=== PATIENT | female | born 1945 | race Hispanic/Latino ===

== ENCOUNTER 2018-02-17 12:17 | Inpatient (IN) | payer MEDICARE ==
[2018-02-17 13:33] LABS: BASO # 0.1 K/uL (0.0-0.2); BASO % 0.4 % (0.0-2.0); EOS # 0.2 K/uL (0.0-0.7); HEMOGLOBIN 15.4 g/dL (11.0-16.0); LYMPH % 4.6 % (20.0-40.0); MEAN CELL VOLUME 90.9 fL (81.0-99.0); MEAN CORPUSCULAR HEMOGLOBIN 32.3 pg (27.0-31.0); MEAN CORPUSCULAR HGB CONC 35.5 g/dL (33.0-37.0); MEAN PLATELET VOLUME 9.6 fL (7.2-11.7); MONO # 1.2 K/uL (0.0-0.8); MONO % 5.8 % (0.0-10.0); NEUT % 88.2 % (50.0-75.0); PLATELET COUNT 316 K/uL (130-400); RBC 4.76 Mil/uL (3.80-5.20); RED CELL DISTRIBUTION WIDTH 13.1 % (11.5-14.5); WHITE BLOOD COUNT 21.5 K/uL (4.8-10.8)
[2018-02-17 13:38] LABS: ALB/GLOB RATIO 0.9 (1.0-2.1); ALBUMIN 3.9 g/dL (3.5-5.0); CALCIUM 9.8 mg/dl (8.6-10.4)
[2018-02-17] MEDS ORDERED: Iohexol 240 (50 ml) PO STA (13:41)
--- NOTE | 2018-02-17 13:41 | C.PDOC ---
History Of Present Illness 72 y/o female presents to ED with complaints of intermittent sharp abdominal pain for 4 days associated with n/v/d. Patient states pain is worse on RUQ and reports fever that resolved. Patient was seen by PMD earlier today and advised to come to ED for further evaluation. Patient currently is tolerating fluids and denies recent travel, dysuria, back pain, chest pain, blood in stool or any other complaints at this time. Time Seen by Provider: 02/17/18 13:01 Chief Complaint (Nursing): Abdominal Pain History Per: Patient History/Exam Limitations: no limitations Onset/Duration Of Symptoms: Days Current Symptoms Are (Timing): Still Present Location Of Pain/Discomfort: RUQ Past Medical History Reviewed: Historical Data, Nursing Documentation, Vital Signs Vital Signs: Last Vital Signs Temp 99.2 F 02/17/18 16:27 Pulse 88 02/17/18 16:27 Resp 18 02/17/18 16:27 BP 142/87 02/17/18 16:27 Pulse Ox 96 02/17/18 17:37 - Medical History PMH: HTN Surgical History: No Surg Hx Family History: States: No Known Family Hx - Social History Hx Alcohol Use: Yes Hx Substance Use: No - Immunization History Hx Tetanus Toxoid Vaccination: Yes Hx Influenza Vaccination: Yes Hx Pneumococcal Vaccination: No Review Of Systems Constitutional: Negative for: Fever, Chills Cardiovascular: Negative for: Chest Pain Gastrointestinal: Positive for: Nausea, Vomiting, Abdominal Pain, Diarrhea. Negative for: Hematochezia Genitourinary: Negative for: Dysuria, Hematuria Skin: Negative for: Rash Physical Exam - Physical Exam Appears: Well, Non-toxic, No Acute Distress Skin: Warm, Dry, No Rash Head: Atraumatic, Normacephalic Eye(s): bilateral: Normal Inspection Oral Mucosa: Moist Neck: Normal ROM, Supple Cardiovascular: Rhythm Regular Respiratory: Normal Breath Sounds, No Rales, No Rhonchi, No Wheezing Gastrointestinal/Abdominal: Bowel Sounds, Soft, Tenderness (RUQ), No Guarding, No Rebound Back: No CVA Tenderness, No Paraspinal Tenderness Neurological/Psych: Oriented x3, Normal Speech, Normal Cognition ED Course And Treatment - Laboratory Results Result Diagrams: 02/17/18 13:22 02/17/18 13:22 ECG: Interpreted By Me, Viewed By Me ECG Rhythm: Sinus Rhythm Rate From EC (BPM) O2 Sat by Pulse Oximetry: 96 (RA) Pulse Ox Interpretation: Normal - CT Scan/US CT Abd/pelvis Other Rad Studies (CT/US): Read By Radiologist, Radiology Report Reviewed CT/US Interpretation: IMPRESSION: Findings consistent with acute appendicitis. Appendicolith noted. No evidence of periappendiceal abscess or free air. Additional minor findings as above. Medical Decision Making Medical Decision Making: Plan: CT abd/pelvis, Blood work, UA ordered. Iohexol and IV fluids administered Progress: Spoke to Dr. Tinajero agreed with Plan and wants consult Dr. Tse for surgery if positive results on CT scan [address]se[address] Dr Tinajero will consult for med clearance. pt declines any analgesics at this time Disposition Discussed With : Manish Tse Jr. Doctor Will See Patient In The: Hospital - Disposition Disposition: HOSPITALIZED Disposition Time: 17:36 Condition: GOOD Forms: [facility] (Cameroonian) - Clinical Impression Clinical Impression: Appendicitis, acute - PA / MENTAL HEALTH PROGRAM SPECIALIST / Resident Statement MD/DO has reviewed & agrees with the documentation as recorded. - Scribe Statement The provider has reviewed the documentation as recorded by the Scribe Jackeline Marcano All medical record entries made by the Shannan were at my direction and personally dictated by me. I have reviewed the chart and agree that the record accurately reflects my personal performance of the history, physical exam, medical decision making, and the department course for this patient. I have also personally directed, reviewed, and agree with the discharge instructions and disposition.
[2018-02-17] MEDS ORDERED: Iohexol 240 (50 ml) ONE (13:47)
[2018-02-17 14:26] LABS: BANDS 1 % (0-2); LYMPHOCYTE 3 % (20-40); MONOCYTE 6 % (0-10); NEUTROPHIL 90 % (50-75); PLATELET ESTIMATE NORMAL (NORMAL); TOTAL CELLS COUNTED 100
[2018-02-17 14:59] LABS: SQUAMOUS EPITHIAL 6 /hpf (0-5); URINE BACTERIA RARE (<OCC); URINE BILIRUBIN NEGATIVE (NEGATIVE); URINE BLOOD NEGATIVE (NEGATIVE); URINE CALCIUM OXALATE CRYSTALS OCC /hpf (<OCC); URINE CLARITY Hazy (Clear); URINE COLOR Amber (YELLOW); URINE GLUCOSE (UA) NORMAL (Normal); URINE LEUKOCYTE ESTERASE TRACE Leu/uL (Negative); URINE PROTEIN 2+ mg/dL (NEGATIVE)
[2018-02-17] MEDS ORDERED: Iodixanol 320 MG/ML 100 ML BOTTLE IV ONE (15:23)
[2018-02-17] MEDS ORDERED: Sodium Chloride 0.9% 1,000 ML ONE (15:23)
[2018-02-17] MEDS: Sodium Chloride 0.9% 1,000 ML IV SCH (15:25)
--- NOTE | 2018-02-17 16:32 | CT ---
PROCEDURE: CT Abdomen and Pelvis with contrast HISTORY: abd pain COMPARISON: None. TECHNIQUE: Contrast dose: 100 mL Visipaque 320 Radiation dose: Total exam DLP = 968.00 mGy-cm. This CT exam was performed using one or more of the following dose reduction techniques: Automated exposure control, adjustment of the mA and/or kV according to patient size, and/or use of iterative reconstruction technique. FINDINGS: LOWER THORAX: Minimal linear scar/ atelectasis in right lower lobe and in lingular segment left upper lobe. LIVER: Normal size, contour and attenuation. Two small nonspecific lesions. Low-attenuation 6 mm lesion in anterior right hepatic lobe, series 3, image 40. Nonspecific 8 mm low-attenuation lesion in the inferior posterior right hepatic lobe, series 3, image 51. No biliary dilatation. GALLBLADDER AND BILE DUCTS: Unremarkable. PANCREAS: Unremarkable. No gross lesion or ductal dilatation. SPLEEN: Unremarkable. ADRENALS: Unremarkable. No mass. KIDNEYS AND URETERS: Multiple small bilateral parapelvic renal cysts. Two tiny nonobstructing left renal calculi, 1 upper pole and 1 lower pole. No right renal calculus. No hydronephrosis. VASCULATURE: Unremarkable. No aortic aneurysm. BOWEL: Sigmoid diverticulosis. No evidence of diverticulitis. No bowel obstruction. APPENDIX: Findings consistent with acute appendicitis. An obstructing appendicolith is identified in the proximal aspect of the appendix. The appendix is distended up to a diameter of 16 mm. Periappendiceal inflammatory change is noted. There is no evidence of periappendiceal abscess. There is no evidence of free intraperitoneal air. Shotty periappendiceal lymph nodes are identified, likely reactive. PERITONEUM: Unremarkable. No free fluid. No free air. Small umbilical hernia containing only mesenteric fat. LYMPH NODES: No retroperitoneal or pelvic lymphadenopathy. BLADDER: Nondistended REPRODUCTIVE: Mildly hyperdense 4.1 cm rounded mass in the left side of the uterine body likely representing a leiomyoma. BONES: Extensive multilevel thoracolumbar degenerative disc disease. No evidence of fracture. Grade 1 anterolisthesis at L5-S1. OTHER FINDINGS: None. IMPRESSION: Findings consistent with acute appendicitis. Appendicolith noted. No evidence of periappendiceal abscess or free air. Additional minor findings as above.
[2018-02-17] MEDS ORDERED: Ciprofloxacin 400mg/200ml D5W 400 MG/200 ML BAG IVPB STA (16:33)
[2018-02-17] MEDS ORDERED: metroNIDAZOLE IV 500 mg/100 ml 500 MG/100 ML BAG IVPB STA (16:34)
[2018-02-17 17:52] LABS: INR 1.3; PROTHROMBIN TIME 14.3 SECONDS (9.7-12.2)
--- NOTE | 2018-02-17 17:56 | CP.PCM.HP ---
History of Present Illness - History of Present Illness History of Present Illness: Surgery H & P 72 F w PMH of HTN came with abd pain N/V/D that started on Saturday. Pain is located on mid abdomen and R side of the abdomen. Pt also report fevers. Took alleve to aliviate pain but didn't work. Pt reports taking Alleve daily for arthritis pain. She couldn't hold down any liquid or food. Denies recent travels or sick contact. Denies hematuria, hematemesis,hematochezia. WBC is 21, CT shows appendicitis PMH HTN, Arthritis PSH knee sx Meds Metoprolol SS non smoker, social drinker Present on Admission - Present on Admission Any Indicators Present on Admission: No Review of Systems - Review of Systems Review of Systems: See HPI Past Patient History - Past Social History Smoking Status: Never Smoked - CARDIAC Hx Hypertension: Yes - PSYCHIATRIC Hx Substance Use: No - SURGICAL HISTORY Hx Surgeries: Yes Other/Comment: knee, nose - ANESTHESIA Hx Anesthesia: Yes Hx Anesthesia Reactions: No Meds Allergies/Adverse Reactions: Allergies Allergy/AdvReac Type Severity Reaction Status Date / Time Sulfa (Sulfonamide Allergy Intermediate URTICARIA Verified 02/17/18 12:26 Antibiotics) cephalexin AdvReac Intermediate DIARRHEA Verified 02/17/18 12:26 Physical Exam - Constitutional Appears: No Acute Distress - Head Exam Head Exam: ATRAUMATIC, NORMAL INSPECTION, NORMOCEPHALIC - Eye Exam Eye Exam: EOMI, Normal appearance, PERRL Pupil Exam: NORMAL ACCOMODATION, PERRL - ENT Exam ENT Exam: Mucous Membranes Moist, Normal Exam - Neck Exam Neck exam: Positive for: Normal Inspection - Respiratory Exam Respiratory Exam: Clear to Auscultation Bilateral, NORMAL BREATHING PATTERN - Cardiovascular Exam Cardiovascular Exam: REGULAR RHYTHM - GI/Abdominal Exam GI & Abdominal Exam: Normal Bowel Sounds, Soft, Tenderness. absent: Distended, Firm, Guarding, Hernia Additional comments: R abd TTP - Extremities Exam Extremities exam: Positive for: normal inspection - Back Exam Back exam: NORMAL INSPECTION - Neurological Exam Neurological exam: Alert, CN II-XII Intact, Normal Gait, Oriented x3, Reflexes Normal - Psychiatric Exam Psychiatric exam: Normal Affect, Normal Mood - Skin Skin Exam: Dry, Intact, Normal Color, Warm Results - Vital Signs Recent Vital Signs: Last Vital Signs Temp 99.2 F 02/17/18 16:27 Pulse 88 02/17/18 16:27 Resp 18 02/17/18 16:27 BP 142/87 02/17/18 16:27 Pulse Ox 96 02/17/18 17:38 - Labs Result Diagrams: 02/17/18 13:22 02/17/18 13:22 Labs: Laboratory Results - last 24 hr 02/17/18 02/17/18 02/17/18 13:22 13:22 14:48 WBC 21.5 H RBC 4.76 Hgb 15.4 Hct 43.2 MCV 90.9 MCH 32.3 H MCHC 35.5 RDW 13.1 Plt Count 316 MPV 9.6 Neut % (Auto) 88.2 H Lymph % (Auto) 4.6 L [place] % (Auto) 5.8 Eos % (Auto) 1.0 Baso % (Auto) 0.4 Neut # (Auto) 19.0 H Lymph # (Auto) 1.0 [place] # (Auto) 1.2 H Eos # (Auto) 0.2 Baso # (Auto) 0.1 Neutrophils % (Manual) 90 H Band Neutrophils % 1 Lymphocytes % (Manual) 3 L Monocytes % (Manual) 6 Platelet Estimate Normal RBC Morphology Normal Sodium 140 Potassium 4.3 Chloride 97 L Carbon Dioxide 29 Anion Gap 18 BUN 20 H Creatinine 1.4 H Est GFR ( Amer) 45 Est GFR (Non-Af Amer) 37 Random Glucose 111 H Calcium 9.8 Total Bilirubin 1.9 H AST 38 H ALT 40 Alkaline Phosphatase 143 H Total Protein 8.2 Albumin 3.9 Globulin 4.3 H Albumin/Globulin Ratio 0.9 L Lipase 20 L Urine Color Samantha Urine Clarity Hazy Urine pH 5.0 Ur Specific [place] 1.027 Urine Protein 2+ H Urine Glucose (UA) Normal Urine Ketones 1+ H Urine Blood Negative Urine Nitrate Negative Urine Bilirubin Negative Urine Urobilinogen 2.0 H Ur Leukocyte Esterase Trace Urine WBC (Auto) 12 H Ur Squamous Epith Cells 6 H Calcium Oxalate Crystal Occ H Urine Bacteria Rare Hyaline Casts 6-10 H Assessment & Plan - Assessment and Plan (Free Text) Assessment: Acute appendicitis -OR tomorrow AM -ABX -IVF -NPO -Metoprolol -Pain /nausea control -DVT/GI ppx SABINE Han
[2018-02-17] MEDS: Piperacill/Tazo 3.375gm in Dex 3.375 GM/50 ML BAG IVPB SCH (21:15)
[2018-02-18] MEDS: Sodium Chloride 0.9% 1,000 ML IV SCH ×3 (01:12→21:46)
--- NOTE | 2018-02-18 01:45 | CP.PCM.CON ---
History of Present Illness - History of Present Illness History of Present Illness: Consultation Report for Medical Clearance for Appendectomy under General Anesthesia: cc: abdominal pain History of Present Illness: Pt awakened Saturday morning feeling sick, though with generalized abdominal pain with no other accompanying symptom. Pt did not feel bad enough that she couldn' t go to work, so she did. By lunchtime, her abdominal pain was such that she vomited. She also felt like she a lot of acccumulated gas all over inside her belly. By the afternoon she felt feverish, went home, and had not been able to eat anything since. Whenever she took Aleve for her presumed fever, she fell asleep and woke up drenched in sweat. Her symptoms persisted and possibly got even worse, with pain localizing at the RUQ of the abdomen. I advised her to go to the ER for immediate evaluation and prepare for possible surgery. > At the ER, pt was worked up and found to have an elevated WBC count as well as dehydrated. Pt's CT scan also showed not a cholecystitis as actually thought but a stone blocking the outflow of the appendix. Pt was subsequently admitted and currently being prepped for surgery. Review of Systems - Review of Systems Systems not reviewed;Unavailable: Acuity of Condition Review of Systems: acutely ill, + pain but tolerable - Constitutional Constitutional: Anorexia, Chills, Fever - EENT Eyes: absent: As Per HPI, Blind Spots, Blurred Vision, Change in Vision, Decreased Night Vision, Diplopia, Discharge, Dry Eye, Exophthalmos, Floaters, Irritation, Itchy Eyes, Loss of Peripheral Vision, Pain, Photophobia, Requires Corrective Lenses, Sees Flashes, Spots in Vision, Tunnel Vision, Other Visual Disturbances, Loss of Vision, Other - Breasts Breasts: absent: As Per HPI, Change in Shape, Mass, Pain, Nipple Discharge, Nipple Inversion, Skin Changes, Swelling, Other - Cardiovascular Cardiovascular: absent: As Per HPI, Acrocyanosis, Chest Pain, Chest Pain at Rest , Chest Pain with Activity, Claudication, Diaphoresis, Dyspnea, Dyspnea on Exertion, Edema, Irregular Heart Rhythm, Pain Radiating to Arm/Neck/Jaw, Leg Edema, Leg Ulcers, Lightheadedness, Orthopnea, Palpitations, Paroxysmal Nocturnal Dyspnea, Pedal Edema, Radiating Pain, Rapid Heart Rate, Slow Heart Rate, Syncope, Other - Respiratory Respiratory: absent: As Per HPI, Cough, Dyspnea, Hemoptysis, Dyspnea on Exertion , Wheezing, Snoring, Stridor, Pain on Inspiration, Chest Congestion, Excessive Mucous Production, Change in Mucous Color, Pain with Coughing, Other - Gastrointestinal Gastrointestinal: absent: As Per HPI, Abdominal Pain, Belching, Bloating, Change in Bowel Habits, Change in Stool Character, Coffee Ground Emesis, Constipation, Cramping, Diarrhea, Dyspepsia, Dysphagia, Early Satiety, Excessive Flatus, Fecal Incontinence, Heartburn, Hematemesis, Hematochezia, Loose Stools, Melena, Nausea, Odynophagia, Temesmus, Vomiting, Other - Genitourinary Genitourinary: absent: As Per HPI, Change in Urinary Stream, Difficulty Urinating, Dysuria, Flank Pain, Hematuria, Pyuria, Nocturia, Urinary Incontinence, Urinary Frequency, Urinary Hesitance, Urinary Urgency, Voiding Freq/Small Amts, Freq UTI, Hx Renal/Bladder Calculi, Hx /Renal Surgery, Bladder Distension, Other - Integumentary Integumentary: Skin Pain Additional comments: on dorsum of bilateral feet - Neurological Neurological: Abnormal Gait, Dizziness, Numbness - Psychiatric Psychiatric: absent: As Per HPI, Abnormal Sleep Pattern, Anhedonia, Anxiety, Auditory Hallucinations, Behavioral Changes, Change in Appetite, Change in Libido, Confusion, Depression, Difficulty Concentrating, Hallucinations, Homicidal Ideation, Hopelessness, Irritability, Memory Loss, Mood Swings, Panic Attacks, Paranoia, Suicidal Ideation, Visual Hallucinations, Tactile Hallucinations, Other - Endocrine Endocrine: absent: As Per HPI, Change in Body Appearance, Change in Libido, Cold Intolorance, Deepening of Voice, Excessive Sweating, Fatigue, Flushing, Heat Intolorance, Increase in Ring/Shoe/Hat Size, Palpitations, Polydipsia, Polyphagia, Polyuria, Other - Hematologic/Lymphatic Hematologic: absent: As Per HPI, Easy Bleeding, Easy Bruising, Lymphadenopathy, Other Past Patient History - Infectious Disease Hx of Infectious Diseases: None - Tetanus Immunizations Tetanus Immunization: Unknown - Past Medical History & Family History Past Medical History?: No Past Family History: Reviewed and not pertinent - Past Social History Smoking Status: Former Smoker Chewing Tobacco Use: No Cigar Use: No Occupation: [employer] - CARDIAC Hx Hypertension: Yes - PULMONARY Hx Respiratory Disorders: No - NEUROLOGICAL Hx Neurological Disorder: No - HEENT Hx Cataracts: Yes (right) - RENAL Hx Chronic Kidney Disease: No - ENDOCRINE/METABOLIC Hx Endocrine Disorders: No - HEMATOLOGICAL/ONCOLOGICAL Hx Blood Disorders: No - INTEGUMENTARY Hx Dermatological Problems: No - MUSCULOSKELETAL/RHEUMATOLOGICAL Hx Musculoskeletal Disorders: No Hx Falls: No - GASTROINTESTINAL Hx Gastrointestinal Disorders: No - GENITOURINARY/GYNECOLOGICAL Hx Genitourinary Disorders: No - PSYCHIATRIC Hx Psychophysiologic Disorder: No Hx Substance Use: No - SURGICAL HISTORY Hx Surgeries: Yes Other/Comment: knee, nose - ANESTHESIA Hx Anesthesia: Yes Hx Anesthesia Reactions: No Has any member of the family had a problem w/ anesthesia?: Yes Meds Allergies/Adverse Reactions: Allergies Allergy/AdvReac Type Severity Reaction Status Date / Time Sulfa (Sulfonamide Allergy Intermediate URTICARIA Verified 02/17/18 12:26 Antibiotics) cephalexin AdvReac Intermediate DIARRHEA Verified 02/17/18 12:26 - Medications Medications: Current Medications Acetaminophen (Tylenol 325mg Tab) 975 mg PO Q6 PRN PRN Reason: Fever >100.4 F Hydromorphone HCl (Dilaudid) 1 mg IVP Q4H PRN PRN Reason: Pain, severe (8-10) Sodium Chloride (Sodium Chloride 0.9%) 1,000 mls @ 100 mls/hr IV .Q10H [facility] Last Admin: 02/17/18 15:25 Dose: 100 mls/hr Piperacillin Sod/Tazobactam Sod (Zosyn 3.375 Gm Iv Premix) 3.375 gm in 50 mls @ 100 mls/hr IVPB Q6H VIET PRN Reason: Protocol Last Admin: 02/17/18 21:15 Dose: 100 mls/hr Metoprolol Tartrate (Lopressor) 25 mg PO BID [facility] Last Admin: 02/17/18 18:48 Dose: 25 mg Ondansetron HCl (Zofran Inj) 4 mg IVP Q4 PRN PRN Reason: Nausea/Vomiting Pantoprazole Sodium (Protonix Inj) 40 mg IVP DAILY [facility] Last Admin: 02/17/18 18:49 Dose: 40 mg Physical Exam - Constitutional Appears: No Acute Distress - Head Exam Head Exam: NORMAL INSPECTION Additional comments: sweaty - Eye Exam Eye Exam: Normal appearance Pupil Exam: NORMAL ACCOMODATION - ENT Exam ENT Exam: Normal Exam - Neck Exam Neck exam: Positive for: Normal Inspection - Respiratory Exam Respiratory Exam: NORMAL BREATHING PATTERN - Cardiovascular Exam Cardiovascular Exam: REGULAR RHYTHM - Rectal Exam Rectal Exam: NORMAL INSPECTION - Extremities Exam Extremities exam: Positive for: normal inspection - Back Exam Back exam: NORMAL INSPECTION - Neurological Exam Neurological exam: Oriented x3, Reflexes Normal - Psychiatric Exam Psychiatric exam: Normal Affect, Normal Mood Results - Vital Signs Recent Vital Signs: Last Vital Signs Temp 98.1 F 02/17/18 23:40 Pulse 70 02/17/18 23:40 Resp 20 02/17/18 23:40 BP 122/77 02/17/18 23:40 Pulse Ox 95 02/17/18 23:40 - Labs Result Diagrams: 02/17/18 13:22 02/17/18 13:22 Labs: Laboratory Results - last 24 hr 02/17/18 02/17/18 02/17/18 13:22 13:22 14:48 WBC 21.5 H RBC 4.76 Hgb 15.4 Hct 43.2 MCV 90.9 MCH 32.3 H MCHC 35.5 RDW 13.1 Plt Count 316 MPV 9.6 Neut % (Auto) 88.2 H Lymph % (Auto) 4.6 L [place] % (Auto) 5.8 Eos % (Auto) 1.0 Baso % (Auto) 0.4 Neut # (Auto) 19.0 H Lymph # (Auto) 1.0 [place] # (Auto) 1.2 H Eos # (Auto) 0.2 Baso # (Auto) 0.1 Neutrophils % (Manual) 90 H Band Neutrophils % 1 Lymphocytes % (Manual) 3 L Monocytes % (Manual) 6 Platelet Estimate Normal RBC Morphology Normal PT INR APTT Sodium 140 Potassium 4.3 Chloride 97 L Carbon Dioxide 29 Anion Gap 18 BUN 20 H Creatinine 1.4 H Est GFR ( Amer) 45 Est GFR (Non-Af Amer) 37 Random Glucose 111 H Calcium 9.8 Total Bilirubin 1.9 H AST 38 H ALT 40 Alkaline Phosphatase 143 H Total Protein 8.2 Albumin 3.9 Globulin 4.3 H Albumin/Globulin Ratio 0.9 L Lipase 20 L Urine Color Samantha Urine Clarity Hazy Urine pH 5.0 Ur Specific [place] 1.027 Urine Protein 2+ H Urine Glucose (UA) Normal Urine Ketones 1+ H Urine Blood Negative Urine Nitrate Negative Urine Bilirubin Negative Urine Urobilinogen 2.0 H Ur Leukocyte Esterase Trace Urine WBC (Auto) 12 H Ur Squamous Epith Cells 6 H Calcium Oxalate Crystal Occ H Urine Bacteria Rare Hyaline Casts 6-10 H Blood Type Antibody Screen 02/17/18 02/17/18 17:31 17:31 WBC RBC Hgb Hct MCV MCH MCHC RDW Plt Count MPV Neut % (Auto) Lymph % (Auto) [place] % (Auto) Eos % (Auto) Baso % (Auto) Neut # (Auto) Lymph # (Auto) [place] # (Auto) Eos # (Auto) Baso # (Auto) Neutrophils % (Manual) Band Neutrophils % Lymphocytes % (Manual) Monocytes % (Manual) Platelet Estimate RBC Morphology PT 14.3 H INR 1.3 APTT 31 Sodium Potassium Chloride Carbon Dioxide Anion Gap BUN Creatinine Est GFR ( Amer) Est GFR (Non-Af Amer) Random Glucose Calcium Total Bilirubin AST ALT Alkaline Phosphatase Total Protein Albumin Globulin Albumin/Globulin Ratio Lipase Urine Color Urine Clarity Urine pH Ur Specific [place] Urine Protein Urine Glucose (UA) Urine Ketones Urine Blood Urine Nitrate Urine Bilirubin Urine Urobilinogen Ur Leukocyte Esterase Urine WBC (Auto) Ur Squamous Epith Cells Calcium Oxalate Crystal Urine Bacteria Hyaline Casts Blood Type O POSITIVE Antibody Screen Negative - EKG Data EKG Interpreted by: Myself EKG shows normal: Sinus rhythm Rate: Normal, Tachycardia - EKG Data When Compared to Previous EKG: No Significant Change Assessment & Plan (1) Appendicitis Assessment and Plan: prep for OR in AM, NPO post midnight Status: Acute (2) Headache Assessment and Plan: prob 2ndry to not enough food; pt aware needs to have empty stomach; pt motivated to fast Status: Acute (3) Dehydration fever Assessment and Plan: acetaminophen 500 mg q 6 hrs prn fever ( T> 99.5) deg F Status: Acute (4) Preoperative clearance Assessment and Plan: Pt may get called in AM for surgery. PATIENT IS MEDICALLY OPTIMIZED FOR LAPAROSCOPIC APPENDECTOMY UNDER GENERAL ANESTHESIA AND SHOULD BE LOW RISK FOR COMPLICATOINS. > Advised pt of normal recovery times in my experience. Status: Acute
[2018-02-18] MEDS: Piperacill/Tazo 3.375gm in Dex 3.375 GM/50 ML BAG IVPB SCH ×5 (02:46→20:35)
[2018-02-18 06:59] LABS: BASO # 0.1 K/uL (0.0-0.2); BASO % 0.4 % (0.0-2.0); EOS # 0.4 K/uL (0.0-0.7); EOS % 2.3 % (0.0-4.0); HEMOGLOBIN 13.9 g/dL (11.0-16.0); LYMPH # 0.9 K/uL (1.0-4.3); LYMPH % 5.6 % (20.0-40.0); MEAN CELL VOLUME 90.8 fL (81.0-99.0); MEAN CORPUSCULAR HEMOGLOBIN 32.3 pg (27.0-31.0); MEAN CORPUSCULAR HGB CONC 35.6 g/dL (33.0-37.0); MEAN PLATELET VOLUME 9.6 fL (7.2-11.7); MONO % 6.1 % (0.0-10.0); NEUT # 13.8 K/uL (1.8-7.0); NEUT % 85.6 % (50.0-75.0); PLATELET COUNT 309 K/uL (130-400); RBC 4.32 Mil/uL (3.80-5.20); RED CELL DISTRIBUTION WIDTH 13.3 % (11.5-14.5); WHITE BLOOD COUNT 16.2 K/uL (4.8-10.8)
[2018-02-18 07:07] LABS: INR 1.3; PROTHROMBIN TIME 14.2 SECONDS (9.7-12.2)
[2018-02-18 07:38] LABS: ALB/GLOB RATIO 0.9 (1.0-2.1); ALBUMIN 3.2 g/dL (3.5-5.0); CALCIUM 8.7 mg/dl (8.6-10.4)
[2018-02-18 08:55] LABS: LYMPHOCYTE 5 % (20-40); MONOCYTE 6 % (0-10); NEUTROPHIL 89 % (50-75); PLATELET ESTIMATE NORMAL (NORMAL); TOTAL CELLS COUNTED 100
--- NOTE | 2018-02-18 10:39 | RAD ---
HISTORY: med clearance COMPARISON: No prior. TECHNIQUE: Chest PA and lateral FINDINGS: LUNGS: Curvilinear atelectasis and/or scarring seen in the mid lung field. Slight elevation right hemidiaphragm. Questionable minor pleural thickening left CP angle PLEURA: No significant pleural effusion identified. No pneumothorax apparent. CARDIOVASCULAR: Heart size within range of normal. OSSEOUS STRUCTURES: Chronic anterior wedge deformities of several mid thoracic segments. VISUALIZED UPPER ABDOMEN: Normal. OTHER FINDINGS: None. IMPRESSION: Curvilinear atelectasis and/or scarring seen in the mid lung field. Slight elevation right hemidiaphragm. Questionable minor pleural thickening left CP angle
[2018-02-18] MEDS ORDERED: Lactated Ringer's 1,000 ML IV ONE ×2 (11:55→14:26)
[2018-02-18] MEDS ORDERED: Midazolam 2 MG/2 ML VIAL ONE (12:04)
[2018-02-18] MEDS ORDERED: Propofol 10 mg/ml Inj (20 ML) ONE (12:04)
[2018-02-18] MEDS ORDERED: Lactated Ringer's 500 ML IV ONE (13:30)
[2018-02-18] MEDS ORDERED: Neostigmine Methylsulfate 3mg/3ml Syringe IV ONE (13:55)
--- NOTE | 2018-02-18 14:25 | PCM.SURG1 ---
Surgeon's Initial Post Op Note - Surgeon's Notes Surgeon: Dr. Han Fuel Manager: Dr. Mejia PGY2 Type of Anesthesia: General Endo Pre-Operative Diagnosis: Acute appendicitis Operative Findings: See operative dictation Post-Operative Diagnosis: Acute Appendicitis with pariappendiceal abscess Operation Performed: Laparoscopic converted to open appendectomy Specimen/Specimens Removed: Appendix Estimated Blood Loss: EBL {In ML}: 20 Blood Products Given: N/A Drains Used: No Drains Post-Op Condition: Good Date of Surgery/Procedure: 02/18/18 Time of Surgery/Procedure: 14:25
[2018-02-18] MEDS ORDERED: Lactated Ringer's 1,000 ML IV SCH (14:45)
[2018-02-18] MEDS: HYDROmorphone 0.5 mg/0.5 ml ISec IVP PRN ×3 (14:52→15:39)
[2018-02-18 16:30] VITALS: RESP 20
[2018-02-18] MEDS: HYDROmorphone 1 mg/ml ISec IVP PRN ×2 (19:43→23:55)
--- NOTE | 2018-02-19 01:28 | OP ---
PROCEDURE DATE: 02/18/2018 PREOPERATIVE DIAGNOSIS: Appendicitis. POSTOPERATIVE DIAGNOSIS: Appendicitis with periappendiceal abscess. OPERATION CARRIED OUT: Attempted laparoscopic and then open appendectomy for appendicitis with a periappendiceal abscess. SURGEON: Manish Han Jr., MD PHOTOTYPESETTING EQUIPMENT MONITOR: ____ ANESTHESIOLOGIST: Mr. Michelle. INDICATIONS: The patient is a 72-year-old woman with abdominal pain. Elevated white count, found to have abnormal appendix on CAT scanning. OPERATIVE FINDINGS: General abdominal exploration laparoscopically was unremarkable. We were able to identify the cecum, but we were unable to mobilize the appendix in the field as it was chronically inflamed and there was a periappendiceal abscess. The resting intraoperative findings were unremarkable. DESCRIPTION OF PROCEDURE: The patient was given general anesthesia, intravenous antibiotics have previously been administered. A Méndez catheter was inserted. We inserted 3 trocars into the abdomen. We were able to identify the cecum, etc. However, after detailed manipulations, we were unable to mobilize the appendix. Because of this, we did not open the appendix. We then opened the abdomen with a right lower quadrant muscle-splitting incision. After this had been done, we identified the appendix. The initial tip of it came out on digital exploration. We then dissected out the base, which was normal, applied the stapler across the base of it and removed the appendix. Blood loss for the procedure was less than 25 mL. The culture was taken of some purulent material. The rest of the intraoperative findings were unremarkable. The entire abdomen and the right lower quadrant were irrigated as well. Evidence of pus, etc., was all removed. Manish Han Jr., MD cc: Michi Tinajero MD
[2018-02-19] MEDS: Piperacill/Tazo 3.375gm in Dex 3.375 GM/50 ML BAG IVPB SCH ×4 (01:49→19:15)
--- NOTE | 2018-02-19 03:52 | CP.PCM.PN ---
Subjective - Date & Time of Evaluation Date of Evaluation: 02/18/18 Time of Evaluation: 16:00 - Subjective Subjective: zx Pt seen and examined at bedside. Had just had some bloody drainage from her incidision site after she walked to the toilet. Resident appears in good spirits though and has pillow covering her abdomen. Explained to pt as well that pain meds will be given as well if she requests for it. Pt is aware that her surgery was converted to an open procedure from a laparoscopic procedure. Pt had been able to eat some jello whle discussing her discharge plans. Objective - Vital Signs/Intake and Output Vital Signs (last 24 hours): Temp Pulse Resp BP Pulse Ox 98.1 F 80 20 122/78 95 02/19/18 00:00 02/19/18 00:00 02/19/18 00:00 02/19/18 00:00 02/19/18 00:00 Intake and Output: 02/18/18 02/19/18 18:59 06:59 Intake Total 500 Output Total 100 Balance 400 - Medications Medications: Current Medications Acetaminophen (Tylenol 325mg Tab) 975 mg PO Q6 PRN PRN Reason: Fever >100.4 F Heparin Sodium (Porcine) (Heparin) 5,000 units SC Q8 [facility] Hydromorphone HCl (Dilaudid) 1 mg IVP Q4H PRN PRN Reason: Pain, severe (8-10) Last Admin: 02/18/18 23:55 Dose: 1 mg Sodium Chloride (Sodium Chloride 0.9%) 1,000 mls @ 100 mls/hr IV .Q10H [facility] Last Admin: 02/18/18 21:46 Dose: 100 mls/hr Piperacillin Sod/Tazobactam Sod (Zosyn 3.375 Gm Iv Premix) 3.375 gm in 50 mls @ 100 mls/hr IVPB Q6H [facility] PRN Reason: Protocol Last Admin: 02/19/18 01:49 Dose: 100 mls/hr Metoprolol Tartrate (Lopressor) 25 mg PO BID [facility] Last Admin: 02/18/18 19:47 Dose: 25 mg Ondansetron HCl (Zofran Inj) 4 mg IVP Q4 PRN PRN Reason: Nausea/Vomiting Oxycodone/Acetaminophen (Percocet 5/325 Mg Tab) 1 tab PO Q4H PRN PRN Reason: Pain, moderate (4-7) Stop: 02/21/18 14:27 Pantoprazole Sodium (Protonix Inj) 40 mg IVP DAILY [facility] Last Admin: 02/18/18 09:20 Dose: 40 mg Pneumococcal Polyvalent Vaccine (Pneumovax 23 Vaccine) 0.5 ml IM .ONCE ONE Stop: 02/20/18 10:01 - Labs Labs: 02/18/18 06:53 02/18/18 06:53 PT 14.2 SECONDS (9.7-12.2) H 02/18/18 06:53 INR 1.3 02/18/18 06:53 APTT 32 SECONDS (21-34) 02/18/18 06:53 - Constitutional Appears: No Acute Distress - Eye Exam Eye Exam: Normal appearance, Scleral icterus - ENT Exam ENT Exam: Mucous Membranes Moist - Neck Exam Neck Exam: Lymphadenopathy - Respiratory Exam Respiratory Exam: NORMAL BREATHING PATTERN Additional comments: extubated, breathing spontaenously - Cardiovascular Exam Cardiovascular Exam: REGULAR RHYTHM - GI/Abdominal Exam GI & Abdominal Exam: Normal Bowel Sounds - Rectal Exam Rectal Exam: Deferred - Extremities Exam Extremities Exam: Normal Inspection - Back Exam Back Exam: NORMAL INSPECTION - Neurological Exam Neurological Exam: Alert, Awake, CN II-XII Intact Neuro motor strength exam: Left Upper Extremity: 5, Right Upper Extremity: 5 - Psychiatric Exam Psychiatric exam: Normal Mood, Suicidal Ideation - Skin Skin Exam: Normal Color Assessment and Plan (1) Appendicitis Assessment & Plan: s/p surgery. appears tolerated procedure well, monitor for signs of infectiosi including fever, hypotension Status: Acute (2) Headache Status: Resolved (3) Dehydration fever Status: Resolved (4) Preoperative clearance Status: Resolved (5) Leukocytosis Assessment & Plan: could be reactive and alexx 2ndry to stress of surgery. Continue IV abx Status: Acute
[2018-02-19] MEDS: HYDROmorphone 1 mg/ml ISec IVP PRN ×2 (04:11→10:35)
[2018-02-19 07:11] LABS: BASO # 0.1 K/uL (0.0-0.2); BASO % 0.5 % (0.0-2.0); EOS # 0.1 K/uL (0.0-0.7); EOS % 0.3 % (0.0-4.0); HEMOGLOBIN 13.3 g/dL (11.0-16.0); LYMPH % 4.7 % (20.0-40.0); MEAN CELL VOLUME 92.2 fL (81.0-99.0); MEAN CORPUSCULAR HEMOGLOBIN 31.6 pg (27.0-31.0); MEAN CORPUSCULAR HGB CONC 34.2 g/dL (33.0-37.0); MEAN PLATELET VOLUME 9.6 fL (7.2-11.7); MONO # 1.9 K/uL (0.0-0.8); NEUT # 18.4 K/uL (1.8-7.0); NEUT % 85.5 % (50.0-75.0); PLATELET COUNT 319 K/uL (130-400); RBC 4.22 Mil/uL (3.80-5.20); RED CELL DISTRIBUTION WIDTH 13.5 % (11.5-14.5); WHITE BLOOD COUNT 21.5 K/uL (4.8-10.8)
[2018-02-19] MEDS: Sodium Chloride 0.9% 1,000 ML IV SCH ×2 (07:33→21:23)
[2018-02-19 09:27] LABS: BANDS 4 % (0-2); LYMPHOCYTE 4 % (20-40); TOTAL CELLS COUNTED 100
[2018-02-19 09:28] LABS: MONOCYTE 8 % (0-10); NEUTROPHIL 84 % (50-75); PLATELET ESTIMATE NORMAL (NORMAL)
--- NOTE | 2018-02-19 12:06 | CP.PCM.PN ---
Subjective - Date & Time of Evaluation Date of Evaluation: 02/19/18 Time of Evaluation: 12:05 - Subjective Subjective: clinically stable wbc remains elevated will advance diet and increase diet and activiyt Objective - Vital Signs/Intake and Output Vital Signs (last 24 hours): Temp Pulse Resp BP Pulse Ox 98.2 F 85 20 134/74 96 02/19/18 08:08 02/19/18 08:08 02/19/18 08:08 02/19/18 11:00 02/19/18 08:08 Intake and Output: 02/19/18 02/19/18 06:59 18:59 Intake Total 920 Balance 920 - Medications Medications: Current Medications Acetaminophen (Tylenol 325mg Tab) 975 mg PO Q6 PRN PRN Reason: Fever >100.4 F Heparin Sodium (Porcine) (Heparin) 5,000 units SC Q8 [facility] Last Admin: 02/19/18 05:54 Dose: 5,000 units Hydromorphone HCl (Dilaudid) 1 mg IVP Q4H PRN PRN Reason: Pain, severe (8-10) Last Admin: 02/19/18 10:35 Dose: 1 mg Sodium Chloride (Sodium Chloride 0.9%) 1,000 mls @ 100 mls/hr IV .Q10H [facility] Last Admin: 02/19/18 07:33 Dose: 100 mls/hr Piperacillin Sod/Tazobactam Sod (Zosyn 3.375 Gm Iv Premix) 3.375 gm in 50 mls @ 100 mls/hr IVPB Q6H [facility] PRN Reason: Protocol Last Admin: 02/19/18 08:48 Dose: 100 mls/hr Metoprolol Tartrate (Lopressor) 25 mg PO BID [facility] Last Admin: 02/19/18 11:00 Dose: 25 mg Ondansetron HCl (Zofran Inj) 4 mg IVP Q4 PRN PRN Reason: Nausea/Vomiting Oxycodone/Acetaminophen (Percocet 5/325 Mg Tab) 1 tab PO Q4H PRN PRN Reason: Pain, moderate (4-7) Stop: 02/21/18 14:27 Pantoprazole Sodium (Protonix Inj) 40 mg IVP DAILY [facility] Last Admin: 02/19/18 11:00 Dose: 40 mg Pneumococcal Polyvalent Vaccine (Pneumovax 23 Vaccine) 0.5 ml IM .ONCE ONE Stop: 02/20/18 10:01 - Labs Labs: 02/19/18 07:00 02/18/18 06:53 PT 14.2 SECONDS (9.7-12.2) H 02/18/18 06:53 INR 1.3 02/18/18 06:53 APTT 32 SECONDS (21-34) 02/18/18 06:53
[2018-02-19] MEDS: Oxycodone/Acetaminophen 5/325 mg Tab PO PRN ×2 (16:01→21:30)
[2018-02-19] MEDS: guaiFENesin 100 mg/5 ml Syrup UD PO PRN ×2 (16:08→21:23)
--- NOTE | 2018-02-19 20:10 | CP.PCM.PN ---
Subjective - Date & Time of Evaluation Date of Evaluation: 02/19/18 Time of Evaluation: 20:08 - Subjective Subjective: Pt seen and examined at bedside. Pt feeling ok, no complaints. Abdom pain less. No s/s/x of sepsis. > Called by nurse earlier re: BP meds for HTN. Awaiting pt's BP to get better before restarting her home meds. BP far from being alarming and in fact, had been running on the borderline hypotensive side. Objective - Vital Signs/Intake and Output Vital Signs (last 24 hours): Temp Pulse Resp BP Pulse Ox 98.4 F 86 20 142/80 99 02/19/18 16:00 02/19/18 16:00 02/19/18 16:00 02/19/18 17:17 02/19/18 16:00 Intake and Output: 02/19/18 02/20/18 18:59 06:59 Intake Total 1000 Balance 1000 - Medications Medications: Current Medications Acetaminophen (Tylenol 325mg Tab) 975 mg PO Q6 PRN PRN Reason: Fever >100.4 F Guaifenesin (Robitussin) 100 mg PO Q4H PRN PRN Reason: Cough Last Admin: 02/19/18 16:08 Dose: 100 mg Heparin Sodium (Porcine) (Heparin) 5,000 units SC Q8 [facility] Last Admin: 02/19/18 14:32 Dose: 5,000 units Hydromorphone HCl (Dilaudid) 1 mg IVP Q4H PRN PRN Reason: Pain, severe (8-10) Last Admin: 02/19/18 10:35 Dose: 1 mg Sodium Chloride (Sodium Chloride 0.9%) 1,000 mls @ 100 mls/hr IV .Q10H [facility] Last Admin: 02/19/18 07:33 Dose: 100 mls/hr Piperacillin Sod/Tazobactam Sod (Zosyn 3.375 Gm Iv Premix) 3.375 gm in 50 mls @ 100 mls/hr IVPB Q6H [facility] PRN Reason: Protocol Last Admin: 02/19/18 19:15 Dose: 100 mls/hr Metoprolol Tartrate (Lopressor) 25 mg PO BID [facility] Last Admin: 02/19/18 17:17 Dose: 25 mg Ondansetron HCl (Zofran Inj) 4 mg IVP Q4 PRN PRN Reason: Nausea/Vomiting Oxycodone/Acetaminophen (Percocet 5/325 Mg Tab) 1 tab PO Q4H PRN PRN Reason: Pain, moderate (4-7) Stop: 02/21/18 14:27 Last Admin: 02/19/18 16:01 Dose: 1 tab Pantoprazole Sodium (Protonix Inj) 40 mg IVP DAILY [facility] Last Admin: 02/19/18 11:00 Dose: 40 mg Pneumococcal Polyvalent Vaccine (Pneumovax 23 Vaccine) 0.5 ml IM .ONCE ONE Stop: 02/20/18 10:01 - Labs Labs: 02/19/18 07:00 02/18/18 06:53 PT 14.2 SECONDS (9.7-12.2) H 02/18/18 06:53 INR 1.3 02/18/18 06:53 APTT 32 SECONDS (21-34) 02/18/18 06:53 - Constitutional Appears: No Acute Distress (NAD other than pain from operative site irmproved with abdom binder) - Head Exam Head Exam: NORMAL INSPECTION - Eye Exam Eye Exam: Normal appearance Pupil Exam: NORMAL ACCOMODATION - ENT Exam ENT Exam: Normal Exam - Neck Exam Neck Exam: Normal Inspection - Respiratory Exam Respiratory Exam: Clear to Ausculation Bilateral - Cardiovascular Exam Cardiovascular Exam: RRR - GI/Abdominal Exam GI & Abdominal Exam: Soft, Hyperactive Bowel Sounds - Rectal Exam Rectal Exam: Fecal Impaction, NORMAL INSPECTION - Back Exam Back Exam: NORMAL INSPECTION - Neurological Exam Neurological Exam: Abnormal Gait, Oriented x3 Neuro motor strength exam: Left Upper Extremity: 4, Right Upper Extremity: 4, Left Lower Extremity: 4, Right Lower Extremity: 4 - Psychiatric Exam Psychiatric exam: Normal Affect, Normal Mood - Skin Skin Exam: Diaphoretic, Dry, Intact, Normal Color Assessment and Plan (1) Leukocytosis Assessment & Plan: The continuing increase in WBC count prmpted me to call Pharmacy to determine relationships between cephalosporin allergy and increases in WBC count when pts are given Zosyn. There is a small subset of pts in which the WBC did rise, and discontinuation led to normalizaton of results. Will consult ID and start meropenem. Status: Acute (2) Appendicitis Assessment & Plan: did not rupture but perimeter had starting periappendiceal abscess. Pt on Zosyn day 3. Status: Resolved - Assessment and Plan (Free Text) Assessment: dISPO: Will require an add'l day of hospitalization to allow for observation if white counts will change in am
[2018-02-19 22:30] LABS: SQUAMOUS EPITHIAL 1 /hpf (0-5); URINE AMORPHOUS SEDIMENT MANY /ul (<OCC); URINE BACTERIA RARE (<OCC); URINE BILIRUBIN NEGATIVE (NEGATIVE); URINE BLOOD NEGATIVE (NEGATIVE); URINE CLARITY Hazy (Clear); URINE GLUCOSE (UA) NORMAL (Normal); URINE LEUKOCYTE ESTERASE NEG Leu/uL (Negative); URINE PROTEIN 1+ mg/dL (NEGATIVE); URINE UROBILINOGEN NORMAL mg/dL (0.2-1.0)
[2018-02-19 22:32] LABS: URINE COLOR YELLOW (YELLOW)
[2018-02-20] MEDS: Albuterol 0.083% Inhal Sol (2.5 mg/3 mL) UD INH SCH ×4 (01:13→19:46)
[2018-02-20] MEDS: Piperacill/Tazo 3.375gm in Dex 3.375 GM/50 ML BAG IVPB SCH ×2 (01:58→07:32)
--- NOTE | 2018-02-20 07:58 | CP.PCM.PN ---
Subjective - Date & Time of Evaluation Date of Evaluation: 02/20/18 Time of Evaluation: 07:50 - Subjective Subjective: General Surgery Progress Note for Dr. Han This 72F was seen and examined this AM at bedside no acute events overnight. The patient complains of generalized sorness in the abdomen however she reports that the percocet is working. She denies fevers however she reports cold sweats. She is passing gas no BM. She is tolerating diet. She is ambulating, she denies chest pain or SOB. Objective - Vital Signs/Intake and Output Vital Signs (last 24 hours): Temp Pulse Resp BP Pulse Ox 98.3 F 86 20 124/82 96 02/20/18 04:00 02/20/18 04:00 02/20/18 04:00 02/20/18 04:00 02/19/18 23:57 - Medications Medications: Current Medications Acetaminophen (Tylenol 325mg Tab) 975 mg PO Q6 PRN PRN Reason: Fever >100.4 F Albuterol Sulfate (Albuterol 0.083% Inhal Beatriz (2.5 Mg/3 Ml) Ud) 2.5 mg INH RQ6 [facility] Last Admin: 02/20/18 01:13 Dose: Not Given Amlodipine Besylate (Norvasc) 5 mg PO DAILY [facility] Guaifenesin (Robitussin) 100 mg PO Q4H PRN PRN Reason: Cough Last Admin: 02/19/18 21:23 Dose: 100 mg Heparin Sodium (Porcine) (Heparin) 5,000 units SC Q8 [facility] Last Admin: 02/20/18 05:21 Dose: 5,000 units Piperacillin Sod/Tazobactam Sod (Zosyn 3.375 Gm Iv Premix) 3.375 gm in 50 mls @ 100 mls/hr IVPB Q6H [facility] PRN Reason: Protocol Last Admin: 02/20/18 07:32 Dose: 100 mls/hr Metoprolol Succinate (Toprol Xl) 25 mg PO DAILY [facility] Ondansetron HCl (Zofran Inj) 4 mg IVP Q4 PRN PRN Reason: Nausea/Vomiting Oxycodone/Acetaminophen (Percocet 5/325 Mg Tab) 1 tab PO Q4H PRN PRN Reason: Pain, moderate (4-7) Stop: 02/21/18 14:27 Last Admin: 02/19/18 21:30 Dose: 1 tab Pantoprazole Sodium (Protonix Inj) 40 mg IVP DAILY [facility] Last Admin: 02/19/18 11:00 Dose: 40 mg Pneumococcal Polyvalent Vaccine (Pneumovax 23 Vaccine) 0.5 ml IM .ONCE ONE Stop: 02/20/18 10:01 Zolpidem Tartrate (Ambien) 5 mg PO HS [facility] Last Admin: 02/19/18 22:19 Dose: 5 mg - Labs Labs: 02/19/18 07:00 02/18/18 06:53 PT 14.2 SECONDS (9.7-12.2) H 02/18/18 06:53 INR 1.3 02/18/18 06:53 APTT 32 SECONDS (21-34) 02/18/18 06:53 - Constitutional Appears: Non-toxic, No Acute Distress - Head Exam Head Exam: ATRAUMATIC, NORMOCEPHALIC - Eye Exam Eye Exam: EOMI, Normal appearance - ENT Exam ENT Exam: Mucous Membranes Moist - Respiratory Exam Respiratory Exam: NORMAL BREATHING PATTERN - Cardiovascular Exam Cardiovascular Exam: +S1, +S2 - GI/Abdominal Exam GI & Abdominal Exam: Soft. absent: Distended, Firm, Guarding, Rigid, Tenderness - Neurological Exam Neurological Exam: Alert, Awake - Psychiatric Exam Psychiatric exam: Normal Affect, Normal Mood - Skin Skin Exam: Dry, Intact Assessment and Plan - Assessment and Plan (Free Text) Assessment: This is a 72F who is PD#2 s/p open appendectomy Regular diet F/U CBC and WBC Ambulate ABX DVT PPX Incentive Spirometer D/W Dr. Emely Mejia PGY2
[2018-02-20 08:38] LABS: BASO % 0.2 % (0.0-2.0); EOS # 0.3 K/uL (0.0-0.7); HEMOGLOBIN 13.9 g/dL (11.0-16.0); LYMPH # 1.7 K/uL (1.0-4.3); LYMPH % 6.6 % (20.0-40.0); MEAN CELL VOLUME 92.2 fL (81.0-99.0); MEAN CORPUSCULAR HEMOGLOBIN 31.7 pg (27.0-31.0); MEAN CORPUSCULAR HGB CONC 34.4 g/dL (33.0-37.0); MEAN PLATELET VOLUME 9.4 fL (7.2-11.7); MONO # 2.4 K/uL (0.0-0.8); MONO % 9.4 % (0.0-10.0); NEUT # 20.8 K/uL (1.8-7.0); NEUT % 82.8 % (50.0-75.0); PLATELET COUNT 403 K/uL (130-400); RBC 4.37 Mil/uL (3.80-5.20); RED CELL DISTRIBUTION WIDTH 13.7 % (11.5-14.5); WHITE BLOOD COUNT 25.1 K/uL (4.8-10.8)
[2018-02-20] MEDS: Oxycodone/Acetaminophen 5/325 mg Tab PO PRN ×3 (08:54→21:15)
[2018-02-20 09:22] LABS: ALB/GLOB RATIO 0.9 (1.0-2.1); ALBUMIN 3.3 g/dL (3.5-5.0); CALCIUM 8.8 mg/dl (8.6-10.4)
[2018-02-20] MEDS: Metoprolol Succinate 25 mg XL Tab PO SCH (09:29)
[2018-02-20] MEDS: guaiFENesin 100 mg/5 ml Syrup UD PO PRN (09:29)
[2018-02-20] MEDS: Pantoprazole 40 mg EC Tab PO SCH (09:29)
[2018-02-20 09:37] LABS: LYMPHOCYTE 4 % (20-40); MONOCYTE 7 % (0-10); NEUTROPHIL 87 % (50-75); PLATELET ESTIMATE NORMAL (NORMAL); REACTIVE LYMPHOCYTES 2 % (0-0); TOTAL CELLS COUNTED 100
[2018-02-20] MEDS ORDERED: Pneumococcal 23-Valent Vaccine IM ONE (10:00)
[2018-02-20] MEDS: Meropenem 1 GM in Sodium Chloride 0.9% 100 ML IVPB SCH ×2 (11:06→18:35)
--- NOTE | 2018-02-20 12:17 | CARD ---
APPROVED REPORT EKG Measurement Heart [id number] ID [id number] <Conclusion> Normal sinus rhythm Normal ECG
--- NOTE | 2018-02-20 19:06 | CP.PCM.CON ---
History of Present Illness - History of Present Illness History of Present Illness: 72 F came with abd pain N/V/D that started on Saturday. She couldn't hold down any liquid or food. Denies recent travels or sick contact. Denies hematuria, hematemesis,hematochezia. WBC is 21, CT showed appendicitis and pt ewent to OR for appendectomy Post op WBC rising despite antibiotics today switched to merrem PMH HTN, Arthritis PSH knee sx Meds Metoprolol SS non smoker, social drinker Review of Systems - Review of Systems All systems: reviewed and no additional remarkable complaints except - Constitutional Constitutional: As Per HPI - EENT Eyes: absent: As Per HPI, Blind Spots, Blurred Vision, Change in Vision, Decreased Night Vision, Diplopia, Discharge, Dry Eye, Exophthalmos, Floaters, Irritation, Itchy Eyes, Loss of Peripheral Vision, Pain, Photophobia, Requires Corrective Lenses, Sees Flashes, Spots in Vision, Tunnel Vision, Other Visual Disturbances, Loss of Vision, Other Ears: absent: As Per HPI, Decreased Hearing, Ear Discharge, Ear Pain, Tinnitus, Abnormal Hearing, Disequilibrium, Dizziness, Other Nose/Mouth/Throat: absent: As Per HPI, Epistaxis, Nasal Congestion, Nasal Discharge, Nasal Obstruction, Nasal Trauma, Nose Pain, Post Nasal Drip, Sinus Pain, Sinus Pressure, Bleeding Gums, Change in Voice, Dental Pain, Dry Mouth, Dysphagia, Halitosis, Hoarsness, Lip Swelling, Mouth Lesions, Mouth Pain, Odynophagia, Sore Throat, Throat Swelling, Tongue Swelling, Facial Pain, Neck Pain, Neck Mass, Other - Breasts Breasts: absent: As Per HPI, Change in Shape, Mass, Pain, Nipple Discharge, Nipple Inversion, Skin Changes, Swelling, Other - Cardiovascular Cardiovascular: absent: As Per HPI, Acrocyanosis, Chest Pain, Chest Pain at Rest , Chest Pain with Activity, Claudication, Diaphoresis, Dyspnea, Dyspnea on Exertion, Edema, Irregular Heart Rhythm, Pain Radiating to Arm/Neck/Jaw, Leg Edema, Leg Ulcers, Lightheadedness, Orthopnea, Palpitations, Paroxysmal Nocturnal Dyspnea, Pedal Edema, Radiating Pain, Rapid Heart Rate, Slow Heart Rate, Syncope, Other - Respiratory Respiratory: As Per HPI - Gastrointestinal Gastrointestinal: absent: As Per HPI, Abdominal Pain, Belching, Bloating, Change in Bowel Habits, Change in Stool Character, Coffee Ground Emesis, Constipation, Cramping, Diarrhea, Dyspepsia, Dysphagia, Early Satiety, Excessive Flatus, Fecal Incontinence, Heartburn, Hematemesis, Hematochezia, Loose Stools, Melena, Nausea, Odynophagia, Temesmus, Vomiting, Other - Genitourinary Genitourinary: absent: As Per HPI, Change in Urinary Stream, Difficulty Urinating, Dysuria, Flank Pain, Hematuria, Pyuria, Nocturia, Urinary Incontinence, Urinary Frequency, Urinary Hesitance, Urinary Urgency, Voiding Freq/Small Amts, Freq UTI, Hx Renal/Bladder Calculi, Hx /Renal Surgery, Bladder Distension, Other - Reproductive: Female Reproductive:Female: absent: As Per HPI, Amenorrhea, Amenorrhea/ Control, Currently Menstual, Cycle <21 Days, Cycle >35 Days, Cycle Variable, Menses 1-7 Days, Menses >/= 8 Days, Menses Variable, Cycle > 4 Weeks Between, No Menses for 6 Months, Heavy Menses, Light Menses, Normal Menses, Spotting Between Cycles , S/P Hysterectomy, Menopausal, Post Menopausal, Premenarche, Abnormal Vaginal Bleeding, Dysmenorrhea, Dyspareunia, Genital Lesions, Genital Pruritis, Pelvic Pain, Prolapse Symptoms, Sexual Dysfunction, Vaginal Discharge, Vaginal Dryness , Vaginal Odor, Vaginal Pruritis, Other - Menstruation Menstruation: absent: As Per HPI, Amenorrhea, Amenorrhea/ Control, Currently Menstual, Cycle <21 Days, Cycle >35 Days, Cycle Variable, Menses 1-7 Days, Menses >/= 8 Days, Menses Variable, Cycle > 4 Weeks Between, No Menses for 6 Months, Heavy Menses, Light Menses, Normal Menses, Spotting Between Cycles , S/P Hysterectomy, Menopausal, Post Menopausal, Premenarche, Abnormal Vaginal Bleeding, Dysmenorrhea, Other - Musculoskeletal Musculoskeletal: absent: As Per HPI, Abnormal Gait, Arthralgias, Atrophy, Back Pain, Deformity, Joint Swelling, Limited Range of Motion, Loss of Height, Muscle Cramps, Muscle Weakness, Myalgias, Neck Pain, Numbness, Radiating Pain into Limb, Stiffness, Tingling, Other - Integumentary Integumentary: absent: As Per HPI, Acne, Alopecia, Bleeding Lesions, Change in Hair, Change in Nails, Change in Pigmentation, Changing Lesions, Dry Skin, Erythema, Furuncle, Hirsutism, Lesions, New Lesions, Non-Healing Lesions, Photosensitivity, Pruritus, Rash, Skin Pain, Skin Ulcer, Sores, Striae, Swelling , Unusual Bruising, Wounds, Jaundice, Other - Neurological Neurological: absent: As Per HPI, Abnormal Gait, Abnormal Hearing, Abnormal Movements, Abnormal Speech, Behavioral Changes, Burning Sensations, Confusion, Convulsions, Disequilibrium, Dizziness, Numbness, Focal Weakness, Frequent Falls , Headaches, Lack of Coordination, Loss of Vision, Memory Loss, Paresthesias, Radicular Pain, Restless Legs, Sensory Deficit, Syncope, Tingling, Tremor, Vertigo, Weakness, Other Visual Disturbances, Other - Psychiatric Psychiatric: absent: As Per HPI, Abnormal Sleep Pattern, Anhedonia, Anxiety, Auditory Hallucinations, Behavioral Changes, Change in Appetite, Change in Libido, Confusion, Depression, Difficulty Concentrating, Hallucinations, Homicidal Ideation, Hopelessness, Irritability, Memory Loss, Mood Swings, Panic Attacks, Paranoia, Suicidal Ideation, Visual Hallucinations, Tactile Hallucinations, Other - Endocrine Endocrine: absent: As Per HPI, Change in Body Appearance, Change in Libido, Cold Intolorance, Deepening of Voice, Excessive Sweating, Fatigue, Flushing, Heat Intolorance, Increase in Ring/Shoe/Hat Size, Palpitations, Polydipsia, Polyphagia, Polyuria, Other - Hematologic/Lymphatic Hematologic: absent: As Per HPI, Easy Bleeding, Easy Bruising, Lymphadenopathy, Other Past Patient History - Infectious Disease Hx of Infectious Diseases: None - Tetanus Immunizations Tetanus Immunization: Unknown - Past Medical History & Family History Past Medical History?: No Past Family History: Reviewed and not pertinent - Past Social History Smoking Status: Former Smoker Chewing Tobacco Use: No Cigar Use: No Occupation: [employer] - CARDIAC Hx Hypertension: Yes - PULMONARY Hx Respiratory Disorders: No - NEUROLOGICAL Hx Neurological Disorder: No - HEENT Hx Cataracts: Yes (right) - RENAL Hx Chronic Kidney Disease: No - ENDOCRINE/METABOLIC Hx Endocrine Disorders: No - HEMATOLOGICAL/ONCOLOGICAL Hx Blood Disorders: No - INTEGUMENTARY Hx Dermatological Problems: No - MUSCULOSKELETAL/RHEUMATOLOGICAL Hx Musculoskeletal Disorders: No Hx Falls: No - GASTROINTESTINAL Hx Gastrointestinal Disorders: No - GENITOURINARY/GYNECOLOGICAL Hx Genitourinary Disorders: No - PSYCHIATRIC Hx Psychophysiologic Disorder: No Hx Substance Use: No - SURGICAL HISTORY Hx Surgeries: Yes Other/Comment: knee, nose - ANESTHESIA Hx Anesthesia: Yes Hx Anesthesia Reactions: No Has any member of the family had a problem w/ anesthesia?: Yes Meds Allergies/Adverse Reactions: Allergies Allergy/AdvReac Type Severity Reaction Status Date / Time Sulfa (Sulfonamide Allergy Intermediate URTICARIA Verified 02/17/18 12:26 Antibiotics) cephalexin AdvReac Intermediate DIARRHEA Verified 02/17/18 12:26 - Medications Medications: Current Medications Acetaminophen (Tylenol 325mg Tab) 975 mg PO Q6 PRN PRN Reason: Fever >100.4 F Albuterol Sulfate (Albuterol 0.083% Inhal Beatriz (2.5 Mg/3 Ml) Ud) 2.5 mg INH RQ6 [facility] Last Admin: 02/20/18 13:12 Dose: 2.5 mg Amlodipine Besylate (Norvasc) 5 mg PO DAILY [facility] Last Admin: 02/20/18 10:00 Dose: 5 mg Guaifenesin (Robitussin) 100 mg PO Q4H PRN PRN Reason: Cough Last Admin: 02/20/18 09:29 Dose: 100 mg Heparin Sodium (Porcine) (Heparin) 5,000 units SC Q8 [facility] Last Admin: 02/20/18 13:41 Dose: 5,000 units Meropenem 1 gm/ Sodium (Chloride) 100 mls @ 100 mls/hr IVPB Q8H [facility] PRN Reason: Protocol Last Admin: 02/20/18 18:35 Dose: 100 mls/hr Metoprolol Succinate (Toprol Xl) 25 mg PO DAILY [facility] Last Admin: 02/20/18 09:29 Dose: 25 mg Ondansetron HCl (Zofran Inj) 4 mg IVP Q4 PRN PRN Reason: Nausea/Vomiting Oxycodone/Acetaminophen (Percocet 5/325 Mg Tab) 1 tab PO Q4H PRN PRN Reason: Pain, moderate (4-7) Stop: 02/21/18 14:27 Last Admin: 02/20/18 14:32 Dose: 1 tab Pantoprazole Sodium (Protonix Ec Tab) 40 mg PO DAILY [facility] Last Admin: 02/20/18 09:29 Dose: 40 mg Zolpidem Tartrate (Ambien) 5 mg PO HS [facility] Last Admin: 02/19/18 22:19 Dose: 5 mg Physical Exam - Constitutional Appears: Non-toxic, Chronically Ill - Head Exam Head Exam: NORMOCEPHALIC - Eye Exam Eye Exam: PERRL. absent: Scleral icterus - ENT Exam ENT Exam: Mucous Membranes Dry, Normal External Ear Exam - Neck Exam Neck exam: Negative for: Lymphadenopathy - Respiratory Exam Respiratory Exam: Decreased Breath Sounds - Cardiovascular Exam Cardiovascular Exam: REGULAR RHYTHM - GI/Abdominal Exam GI & Abdominal Exam: Diminished Bowel Sounds, Soft. absent: Tenderness - Rectal Exam Rectal Exam: Deferred - Exam Exam: NORMAL INSPECTION - Extremities Exam Extremities exam: Positive for: pedal edema, pedal pulses present. Negative for : calf tenderness, tenderness - Back Exam Back exam: absent: CVA tenderness (L), CVA tenderness (R), paraspinal tenderness - Neurological Exam Neurological exam: Alert, CN II-XII Intact, Oriented x3, Reflexes Normal - Psychiatric Exam Psychiatric exam: Normal Mood - Skin Skin Exam: Dry Results - Vital Signs Recent Vital Signs: Last Vital Signs Temp 98.6 F 02/20/18 16:00 Pulse 91 H 02/20/18 16:00 Resp 20 02/20/18 16:00 BP 141/75 02/20/18 16:00 Pulse Ox 98 02/20/18 16:00 - Labs Result Diagrams: 02/20/18 08:29 02/20/18 08:29 Labs: Laboratory Results - last 24 hr 02/19/18 02/20/18 02/20/18 22:23 08:29 08:29 WBC 25.1 H RBC 4.37 Hgb 13.9 Hct 40.3 MCV 92.2 MCH 31.7 H MCHC 34.4 RDW 13.7 Plt Count 403 H MPV 9.4 Neut % (Auto) 82.8 H Lymph % (Auto) 6.6 L [place] % (Auto) 9.4 Eos % (Auto) 1.0 Baso % (Auto) 0.2 Neut # (Auto) 20.8 H Lymph # (Auto) 1.7 [place] # (Auto) 2.4 H Eos # (Auto) 0.3 Baso # (Auto) 0.0 Neutrophils % (Manual) 87 H Lymphocytes % (Manual) 4 L Reactive Lymphs % 2 H Monocytes % (Manual) 7 Platelet Estimate Normal Sodium 140 Potassium 4.2 Chloride 99 Carbon Dioxide 28 Anion Gap 17 BUN 15 Creatinine 1.1 Est GFR ( Amer) 59 Est GFR (Non-Af Amer) 49 Random Glucose 102 Serum Osmolality Calcium 8.8 Total Bilirubin 1.4 H AST 21 ALT 27 Alkaline Phosphatase 104 NT-Pro-B Natriuret Pep 368 Total Protein 6.9 Albumin 3.3 L Globulin 3.5 Albumin/Globulin Ratio 0.9 L Urine Color Yellow Urine Clarity Hazy Urine pH 5.0 Ur Specific [place] 1.025 Urine Protein 1+ H Urine Glucose (UA) Normal Urine Ketones Negative Urine Blood Negative Urine Nitrate Negative Urine Bilirubin Negative Urine Urobilinogen Normal Ur Leukocyte Esterase Neg Urine WBC (Auto) 5 Urine RBC (Auto) 1 Ur Squamous Epith Cells 1 Amorphous Sediment Many H Urine Bacteria Rare 02/20/18 08:29 WBC RBC Hgb Hct MCV MCH MCHC RDW Plt Count MPV Neut % (Auto) Lymph % (Auto) [place] % (Auto) Eos % (Auto) Baso % (Auto) Neut # (Auto) Lymph # (Auto) [place] # (Auto) Eos # (Auto) Baso # (Auto) Neutrophils % (Manual) Lymphocytes % (Manual) Reactive Lymphs % Monocytes % (Manual) Platelet Estimate Sodium Potassium Chloride Carbon Dioxide Anion Gap BUN Creatinine Est GFR ( Amer) Est GFR (Non-Af Amer) Random Glucose Serum Osmolality 293 Calcium Total Bilirubin AST ALT Alkaline Phosphatase NT-Pro-B Natriuret Pep Total Protein Albumin Globulin Albumin/Globulin Ratio Urine Color Urine Clarity Urine pH Ur Specific [place] Urine Protein Urine Glucose (UA) Urine Ketones Urine Blood Urine Nitrate Urine Bilirubin Urine Urobilinogen Ur Leukocyte Esterase Urine WBC (Auto) Urine RBC (Auto) Ur Squamous Epith Cells Amorphous Sediment Urine Bacteria Assessment & Plan (1) Appendicitis, acute Status: Acute (2) Leukocytosis Status: Acute - Assessment and Plan (Free Text) Assessment: leukemoid reaction s/p appendectomy will obtain CXR to r/o pneumonia will check venous dopplers r/o DVT agree with Merrem if wbc elevation persists consider repeat CT abd /pelvis to r/o collection
[2018-02-21] MEDS: Albuterol 0.083% Inhal Sol (2.5 mg/3 mL) UD INH SCH ×4 (01:24→19:47)
[2018-02-21] MEDS: Meropenem 1 GM in Sodium Chloride 0.9% 100 ML IVPB SCH ×3 (02:43→18:13)
[2018-02-21] MEDS: Oxycodone/Acetaminophen 5/325 mg Tab PO PRN ×3 (06:19→19:50)
[2018-02-21 06:49] LABS: BASO # 0.1 K/uL (0.0-0.2); BASO % 0.5 % (0.0-2.0); EOS # 0.4 K/uL (0.0-0.7); EOS % 1.6 % (0.0-4.0); HEMOGLOBIN 13.3 g/dL (11.0-16.0); LYMPH # 2.2 K/uL (1.0-4.3); LYMPH % 9.5 % (20.0-40.0); MEAN CELL VOLUME 91.9 fL (81.0-99.0); MEAN CORPUSCULAR HEMOGLOBIN 31.9 pg (27.0-31.0); MEAN CORPUSCULAR HGB CONC 34.7 g/dL (33.0-37.0); MEAN PLATELET VOLUME 9.3 fL (7.2-11.7); MONO % 8.9 % (0.0-10.0); NEUT # 18.1 K/uL (1.8-7.0); NEUT % 79.5 % (50.0-75.0); NRBC % 0.1 % (0.0-2.0); PLATELET COUNT 413 K/uL (130-400); RBC 4.17 Mil/uL (3.80-5.20); RED CELL DISTRIBUTION WIDTH 13.6 % (11.5-14.5); WHITE BLOOD COUNT 22.8 K/uL (4.8-10.8)
--- NOTE | 2018-02-21 07:47 | CP.PCM.PN ---
Subjective - Date & Time of Evaluation Date of Evaluation: 02/21/18 Time of Evaluation: 07:00 - Subjective Subjective: SURGERY NOTE FOR DR. OSBORN 72F seen and examined at bedside. Patient states pain is controlled. She is tolerating diet. denies nausea/vomiting. States she is passing gas but denies bowel movement. Objective - Vital Signs/Intake and Output Vital Signs (last 24 hours): Temp Pulse Resp BP Pulse Ox 98.3 F 90 20 139/76 96 02/21/18 04:00 02/21/18 04:00 02/21/18 04:00 02/21/18 04:00 02/21/18 04:00 Intake and Output: 02/21/18 02/21/18 06:59 18:59 Intake Total 400 Balance 400 - Medications Medications: Current Medications Acetaminophen (Tylenol 325mg Tab) 975 mg PO Q6 PRN PRN Reason: Fever >100.4 F Albuterol Sulfate (Albuterol 0.083% Inhal Beatriz (2.5 Mg/3 Ml) Ud) 2.5 mg INH RQ6 [facility] Last Admin: 02/21/18 07:32 Dose: Not Given Amlodipine Besylate (Norvasc) 5 mg PO DAILY [facility] Last Admin: 02/20/18 10:00 Dose: 5 mg Guaifenesin (Robitussin) 100 mg PO Q4H PRN PRN Reason: Cough Last Admin: 02/20/18 09:29 Dose: 100 mg Heparin Sodium (Porcine) (Heparin) 5,000 units SC Q8 [facility] Last Admin: 02/21/18 05:22 Dose: 5,000 units Meropenem 1 gm/ Sodium (Chloride) 100 mls @ 100 mls/hr IVPB Q8H [facility] PRN Reason: Protocol Last Admin: 02/21/18 02:43 Dose: 100 mls/hr Metoprolol Succinate (Toprol Xl) 25 mg PO DAILY [facility] Last Admin: 02/20/18 09:29 Dose: 25 mg Ondansetron HCl (Zofran Inj) 4 mg IVP Q4 PRN PRN Reason: Nausea/Vomiting Oxycodone/Acetaminophen (Percocet 5/325 Mg Tab) 1 tab PO Q4H PRN PRN Reason: Pain, moderate (4-7) Stop: 02/21/18 14:27 Last Admin: 02/21/18 06:19 Dose: 1 tab Pantoprazole Sodium (Protonix Ec Tab) 40 mg PO DAILY [facility] Last Admin: 02/20/18 09:29 Dose: 40 mg Zolpidem Tartrate (Ambien) 5 mg PO HS [facility] Last Admin: 02/20/18 23:12 Dose: 5 mg - Labs Labs: 02/21/18 06:29 02/20/18 08:29 PT 14.2 SECONDS (9.7-12.2) H 02/18/18 06:53 INR 1.3 02/18/18 06:53 APTT 32 SECONDS (21-34) 02/18/18 06:53 - Constitutional Appears: Non-toxic, No Acute Distress - Respiratory Exam Respiratory Exam: Clear to Ausculation Bilateral, NORMAL BREATHING PATTERN - Cardiovascular Exam Cardiovascular Exam: REGULAR RHYTHM, +S1, +S2 - GI/Abdominal Exam GI & Abdominal Exam: Soft, Tenderness. absent: Distended, Firm, Guarding, Rigid , Rebound Additional comments: dressing clean dry intact - Extremities Exam Extremities Exam: absent: Pedal Edema, Tenderness - Neurological Exam Neurological Exam: Alert, Awake - Skin Skin Exam: Dry, Intact, Normal Color, Warm Assessment and Plan - Assessment and Plan (Free Text) Assessment: 72F s/p lap appendectomy POD3, Continues to have elevated WBC. leukemoid reaction Plan: - diet as tolerated - pain control - ID consulted - Antibiotics switched to merrem Further recs discuss with Dr. Emely Cazares, PGY2
--- NOTE | 2018-02-21 07:53 | CP.PCM.PN ---
Subjective - Date & Time of Evaluation Date of Evaluation: 02/21/18 Time of Evaluation: 07:52 - Subjective Subjective: path acute appendicitis c& s e coli and strep Objective - Vital Signs/Intake and Output Vital Signs (last 24 hours): Temp Pulse Resp BP Pulse Ox 98.3 F 90 20 139/76 96 02/21/18 04:00 02/21/18 04:00 02/21/18 04:00 02/21/18 04:00 02/21/18 04:00 Intake and Output: 02/21/18 02/21/18 06:59 18:59 Intake Total 400 Balance 400 - Medications Medications: Current Medications Acetaminophen (Tylenol 325mg Tab) 975 mg PO Q6 PRN PRN Reason: Fever >100.4 F Albuterol Sulfate (Albuterol 0.083% Inhal Beatriz (2.5 Mg/3 Ml) Ud) 2.5 mg INH RQ6 [facility] Last Admin: 02/21/18 07:32 Dose: Not Given Amlodipine Besylate (Norvasc) 5 mg PO DAILY [facility] Last Admin: 02/20/18 10:00 Dose: 5 mg Guaifenesin (Robitussin) 100 mg PO Q4H PRN PRN Reason: Cough Last Admin: 02/20/18 09:29 Dose: 100 mg Heparin Sodium (Porcine) (Heparin) 5,000 units SC Q8 [facility] Last Admin: 02/21/18 05:22 Dose: 5,000 units Meropenem 1 gm/ Sodium (Chloride) 100 mls @ 100 mls/hr IVPB Q8H [facility] PRN Reason: Protocol Last Admin: 02/21/18 02:43 Dose: 100 mls/hr Metoprolol Succinate (Toprol Xl) 25 mg PO DAILY [facility] Last Admin: 02/20/18 09:29 Dose: 25 mg Ondansetron HCl (Zofran Inj) 4 mg IVP Q4 PRN PRN Reason: Nausea/Vomiting Oxycodone/Acetaminophen (Percocet 5/325 Mg Tab) 1 tab PO Q4H PRN PRN Reason: Pain, moderate (4-7) Stop: 02/21/18 14:27 Last Admin: 02/21/18 06:19 Dose: 1 tab Pantoprazole Sodium (Protonix Ec Tab) 40 mg PO DAILY [facility] Last Admin: 02/20/18 09:29 Dose: 40 mg Zolpidem Tartrate (Ambien) 5 mg PO HS [facility] Last Admin: 02/20/18 23:12 Dose: 5 mg - Labs Labs: 02/21/18 06:29 02/20/18 08:29 PT 14.2 SECONDS (9.7-12.2) H 02/18/18 06:53 INR 1.3 02/18/18 06:53 APTT 32 SECONDS (21-34) 02/18/18 06:53
[2018-02-21 08:08] LABS: ALBUMIN 3.3 g/dL (3.5-5.0); ALT/SGPT 30 U/L (9-52); AST/SGOT 19 U/L (14-36); BLOOD UREA NITROGEN 15 mg/dL (7-17); CALCIUM 8.6 mg/dl (8.6-10.4); GFR AFRICAN-AMERICAN > 60; GFR NON-AFRICAN AMERICAN > 60
[2018-02-21 08:39] LABS: BANDS 3 % (0-2); EOSINOPHIL 2 % (0-4); LYMPHOCYTE 9 % (20-40); MONOCYTE 6 % (0-10); MYELOCYTE 3 % (0-0); NEUTROPHIL 77 % (50-75); PLATELET ESTIMATE NORMAL (NORMAL); TOTAL CELLS COUNTED 100
[2018-02-21] MEDS: Metoprolol Succinate 25 mg XL Tab PO SCH (09:40)
[2018-02-21] MEDS: guaiFENesin 100 mg/5 ml Syrup UD PO PRN (09:40)
[2018-02-21] MEDS: Pantoprazole 40 mg EC Tab PO SCH (09:40)
--- NOTE | 2018-02-21 11:03 | RAD ---
HISTORY: r/o pneumonia COMPARISON: 02/17/2018 TECHNIQUE: Chest PA and lateral FINDINGS: LUNGS: No infiltrate. Linear atelectasis adjacent to left hilum. PLEURA: Small pleural effusion, most likely left. CARDIOVASCULAR: Normal. OSSEOUS STRUCTURES: No significant abnormalities. VISUALIZED UPPER ABDOMEN: Normal. OTHER FINDINGS: None. IMPRESSION: Small pleural effusion, likely left. Otherwise unremarkable.
--- NOTE | 2018-02-21 18:21 | CP.PCM.PN ---
Subjective - Date & Time of Evaluation Date of Evaluation: 02/21/18 Time of Evaluation: 08:00 - Subjective Subjective: no fever alert abd soft nad wbc less Objective - Vital Signs/Intake and Output Vital Signs (last 24 hours): Temp Pulse Resp BP Pulse Ox 98.0 F 88 20 134/69 94 L 02/21/18 15:00 02/21/18 15:00 02/21/18 15:00 02/21/18 15:00 02/21/18 15:00 Intake and Output: 02/21/18 02/21/18 06:59 18:59 Intake Total 400 100 Balance 400 100 - Medications Medications: Current Medications Acetaminophen (Tylenol 325mg Tab) 975 mg PO Q6 PRN PRN Reason: Fever >100.4 F Albuterol Sulfate (Albuterol 0.083% Inhal Beatriz (2.5 Mg/3 Ml) Ud) 2.5 mg INH RQ6 [facility] Last Admin: 02/21/18 13:24 Dose: 2.5 mg Amlodipine Besylate (Norvasc) 5 mg PO DAILY [facility] Last Admin: 02/21/18 09:40 Dose: 5 mg Guaifenesin (Robitussin) 100 mg PO Q4H PRN PRN Reason: Cough Last Admin: 02/21/18 09:40 Dose: 100 mg Heparin Sodium (Porcine) (Heparin) 5,000 units SC Q8 [facility] Last Admin: 02/21/18 13:24 Dose: 5,000 units Meropenem 1 gm/ Sodium (Chloride) 100 mls @ 100 mls/hr IVPB Q8H [facility] PRN Reason: Protocol Last Admin: 02/21/18 18:13 Dose: 100 mls/hr Metoprolol Succinate (Toprol Xl) 25 mg PO DAILY [facility] Last Admin: 02/21/18 09:40 Dose: 25 mg Ondansetron HCl (Zofran Inj) 4 mg IVP Q4 PRN PRN Reason: Nausea/Vomiting Pantoprazole Sodium (Protonix Ec Tab) 40 mg PO DAILY [facility] Last Admin: 02/21/18 09:40 Dose: 40 mg Zolpidem Tartrate (Ambien) 5 mg PO HS [facility] Last Admin: 02/20/18 23:12 Dose: 5 mg - Labs Labs: 02/21/18 06:29 02/21/18 07:39 PT 14.2 SECONDS (9.7-12.2) H 02/18/18 06:53 INR 1.3 02/18/18 06:53 APTT 32 SECONDS (21-34) 02/18/18 06:53 - Constitutional Appears: Non-toxic, Chronically Ill - Head Exam Head Exam: NORMOCEPHALIC - Eye Exam Eye Exam: PERRL - ENT Exam ENT Exam: Mucous Membranes Dry - Neck Exam Neck Exam: absent: Lymphadenopathy - Respiratory Exam Respiratory Exam: Decreased Breath Sounds - Cardiovascular Exam Cardiovascular Exam: REGULAR RHYTHM - GI/Abdominal Exam GI & Abdominal Exam: Distended, Tenderness. absent: Soft - Rectal Exam Rectal Exam: Deferred - Exam Exam: NORMAL INSPECTION - Extremities Exam Extremities Exam: absent: Pedal Edema - Back Exam Back Exam: absent: CVA tenderness (L), CVA tenderness (R) - Neurological Exam Neurological Exam: Alert, Awake Assessment and Plan (1) Appendicitis, acute Status: Acute (2) Leukocytosis Status: Acute - Assessment and Plan (Free Text) Assessment: leukemoid reaction- stress, infection on merrem allergic to keflex? diarrhea cont iv rx for now - options limited ? levofloxacin
[2018-02-21] MEDS ORDERED: Oxycodone/Acetaminophen 5/325 mg Tab PO PRN (19:48)
[2018-02-22 00:15] VITALS: O2SAT 95
[2018-02-22] MEDS: Albuterol 0.083% Inhal Sol (2.5 mg/3 mL) UD INH SCH ×4 (01:15→13:14)
[2018-02-22] MEDS: Meropenem 1 GM in Sodium Chloride 0.9% 100 ML IVPB SCH (03:18)
[2018-02-22] MEDS: Oxycodone/Acetaminophen 5/325 mg Tab PO PRN ×2 (05:20→10:52)
[2018-02-22 08:12] VITALS: BP 137/82; PULSE 84; TEMP 98.3
--- NOTE | 2018-02-22 08:34 | CP.PCM.PN ---
Subjective - Date & Time of Evaluation Date of Evaluation: 02/22/18 Time of Evaluation: 08:32 - Subjective Subjective: SURGERY NOTE FOR DR. OSBORN 72F seen and examined at bedside. Denies pain, nausea, vomiting, fevers, chills. States she wants to go home. Objective - Vital Signs/Intake and Output Vital Signs (last 24 hours): Temp Pulse Resp BP Pulse Ox 98.3 F 84 20 137/82 95 02/22/18 08:09 02/22/18 08:09 02/22/18 08:09 02/22/18 08:09 02/22/18 08:09 - Medications Medications: Current Medications Acetaminophen (Tylenol 325mg Tab) 975 mg PO Q6 PRN PRN Reason: Fever >100.4 F Albuterol Sulfate (Albuterol 0.083% Inhal Beatriz (2.5 Mg/3 Ml) Ud) 2.5 mg INH RQ6 [facility] Last Admin: 02/22/18 07:48 Dose: Not Given Amlodipine Besylate (Norvasc) 5 mg PO DAILY [facility] Last Admin: 02/21/18 09:40 Dose: 5 mg Docusate Sodium (Colace) 100 mg PO DAILY [facility] Guaifenesin (Robitussin) 100 mg PO Q4H PRN PRN Reason: Cough Last Admin: 02/21/18 09:40 Dose: 100 mg Heparin Sodium (Porcine) (Heparin) 5,000 units SC Q8 [facility] Last Admin: 02/22/18 05:29 Dose: 5,000 units Meropenem (Merrem Iv 1 Gm Premix) 50 mls @ 100 mls/hr IVPB Q8H [facility] PRN Reason: Protocol Ketorolac Tromethamine (Toradol) 15 mg IVP Q6 [facility] Metoprolol Succinate (Toprol Xl) 25 mg PO DAILY [facility] Last Admin: 02/21/18 09:40 Dose: 25 mg Ondansetron HCl (Zofran Inj) 4 mg IVP Q4 PRN PRN Reason: Nausea/Vomiting Oxycodone/Acetaminophen (Percocet 5/325 Mg Tab) 1 tab PO Q4H PRN PRN Reason: Pain, moderate (4-7) Stop: 02/24/18 19:47 Last Admin: 02/22/18 05:20 Dose: 1 tab Oxycodone/Acetaminophen (Percocet 5/325 Mg Tab) 2 tab PO Q4H PRN PRN Reason: Pain, moderate (4-7) Stop: 02/24/18 19:49 Pantoprazole Sodium (Protonix Ec Tab) 40 mg PO DAILY [facility] Last Admin: 02/21/18 09:40 Dose: 40 mg Zolpidem Tartrate (Ambien) 5 mg PO HS [facility] Last Admin: 02/21/18 21:11 Dose: 5 mg - Labs Labs: 02/21/18 06:29 02/21/18 07:39 PT 14.2 SECONDS (9.7-12.2) H 02/18/18 06:53 INR 1.3 02/18/18 06:53 APTT 32 SECONDS (21-34) 02/18/18 06:53 - Constitutional Appears: Non-toxic, No Acute Distress - Respiratory Exam Respiratory Exam: Clear to Ausculation Bilateral, NORMAL BREATHING PATTERN - Cardiovascular Exam Cardiovascular Exam: REGULAR RHYTHM, +S1, +S2 - GI/Abdominal Exam GI & Abdominal Exam: Soft. absent: Distended, Firm, Guarding, Rigid, Tenderness , Rebound Additional comments: dressing CDI - Extremities Exam Extremities Exam: absent: Pedal Edema, Tenderness - Neurological Exam Neurological Exam: Alert, Awake Assessment and Plan - Assessment and Plan (Free Text) Assessment: 72F s/p open appendectomy POD4 Plan: Diet Pain control await WBC continue Abx Further recs discuss with Dr. Susanne Cazares, PGY2
[2018-02-22 09:10] LABS: BASO # 0.1 K/uL (0.0-0.2); BASO % 0.5 % (0.0-2.0); EOS # 0.4 K/uL (0.0-0.7); HEMOGLOBIN 13.4 g/dL (11.0-16.0); LYMPH # 2.1 K/uL (1.0-4.3); LYMPH % 10.4 % (20.0-40.0); MEAN CELL VOLUME 90.4 fL (81.0-99.0); MEAN CORPUSCULAR HGB CONC 35.4 g/dL (33.0-37.0); MEAN PLATELET VOLUME 9.2 fL (7.2-11.7); MONO # 1.8 K/uL (0.0-0.8); NEUT # 15.5 K/uL (1.8-7.0); NEUT % 78.1 % (50.0-75.0); RBC 4.17 Mil/uL (3.80-5.20); RED CELL DISTRIBUTION WIDTH 13.7 % (11.5-14.5); WHITE BLOOD COUNT 19.8 K/uL (4.8-10.8)
[2018-02-22] MEDS: Metoprolol Succinate 25 mg XL Tab PO SCH (10:46)
[2018-02-22] MEDS: Pantoprazole 40 mg EC Tab PO SCH (10:54)
--- NOTE | 2018-02-22 10:56 | CP.PCM.PN ---
Subjective - Date & Time of Evaluation Date of Evaluation: 02/22/18 Time of Evaluation: 10:53 - Subjective Subjective: clinically improved wound fine duplex negative wbc trending down plan to dc home today duricef- e coli/strep percocet Objective - Vital Signs/Intake and Output Vital Signs (last 24 hours): Temp Pulse Resp BP Pulse Ox 98.3 F 84 20 137/82 95 02/22/18 08:09 02/22/18 08:09 02/22/18 08:09 02/22/18 08:09 02/22/18 08:09 - Medications Medications: Current Medications Acetaminophen (Tylenol 325mg Tab) 975 mg PO Q6 PRN PRN Reason: Fever >100.4 F Albuterol Sulfate (Albuterol 0.083% Inhal Beatriz (2.5 Mg/3 Ml) Ud) 2.5 mg INH RQ6 [facility] Last Admin: 02/22/18 07:48 Dose: Not Given Amlodipine Besylate (Norvasc) 5 mg PO DAILY [facility] Last Admin: 02/22/18 10:46 Dose: 5 mg Docusate Sodium (Colace) 100 mg PO DAILY [facility] Last Admin: 02/22/18 10:46 Dose: 100 mg Guaifenesin (Robitussin) 100 mg PO Q4H PRN PRN Reason: Cough Last Admin: 02/21/18 09:40 Dose: 100 mg Heparin Sodium (Porcine) (Heparin) 5,000 units SC Q8 [facility] Last Admin: 02/22/18 05:29 Dose: 5,000 units Meropenem (Merrem Iv 1 Gm Premix) 50 mls @ 100 mls/hr IVPB Q8H [facility] PRN Reason: Protocol Last Admin: 02/22/18 10:45 Dose: 100 mls/hr Ketorolac Tromethamine (Toradol) 15 mg IVP Q6 [facility] Metoprolol Succinate (Toprol Xl) 25 mg PO DAILY [facility] Last Admin: 02/22/18 10:46 Dose: 25 mg Ondansetron HCl (Zofran Inj) 4 mg IVP Q4 PRN PRN Reason: Nausea/Vomiting Oxycodone/Acetaminophen (Percocet 5/325 Mg Tab) 1 tab PO Q4H PRN PRN Reason: Pain, moderate (4-7) Stop: 02/24/18 19:47 Last Admin: 02/22/18 10:52 Dose: 1 tab Oxycodone/Acetaminophen (Percocet 5/325 Mg Tab) 2 tab PO Q4H PRN PRN Reason: Pain, moderate (4-7) Stop: 02/24/18 19:49 Pantoprazole Sodium (Protonix Ec Tab) 40 mg PO DAILY [facility] Last Admin: 02/21/18 09:40 Dose: 40 mg Zolpidem Tartrate (Ambien) 5 mg PO HS [facility] Last Admin: 02/21/18 21:11 Dose: 5 mg - Labs Labs: 02/22/18 08:58 02/21/18 07:39 PT 14.2 SECONDS (9.7-12.2) H 02/18/18 06:53 INR 1.3 02/18/18 06:53 APTT 32 SECONDS (21-34) 02/18/18 06:53
[2018-02-22] MEDS ORDERED: Meropenem IV 1 gm in NS 50 ML IVPB SCH (11:00)
--- NOTE | 2018-02-22 15:03 | VASCLAB ---
PROCEDURE: Lower Extremity Venous Duplex Exam. HISTORY: Pedal edema, r/o dvt Post appendectomy PRIORS: None. TECHNIQUE: Bilateral common femoral, femoral, popliteal and posterior tibial, peroneal and great saphenous veins were evaluated. Flow was assessed with color Doppler, compressibility, assessment of phasic flow and augmentation response. Report prepared by Babak Diamond RVT FINDINGS: RIGHT: 1. Common Femoral Vein: 1.1. Compressibility - Fully compressible: Thrombus - None : Flow - Phasic: Augmentation -Normal: Reflux - . 2. Femoral Vein: 2.1. Compressibility - Fully compressible: Thrombus - None : Flow - Phasic: Augmentation -Normal: Reflux - . 3. Popliteal Vein: 3.1. Compressibility - Fully compressible: Thrombus - None : Flow - Phasic: Augmentation -Normal: Reflux - . 4. Posterior Tibial Vein: 4.1. Compressibility - Fully compressible: Thrombus - None: Flow - : Augmentation -: Reflux - . 5. Peroneal Vein: 5.1. Compressibility - Fully compressible: Thrombus - None: Flow - : Augmentation -: Reflux - . 6. Great Saphenous Vein: 6.1. Compressibility - Fully compressible: Thrombus - None: Flow - Phasic: Augmentation - : Reflux - . LEFT: 1. Common Femoral Vein: 1.1. Compressibility - Fully compressible: Thrombus - None: Flow - Phasic: Augmentation -Normal: Reflux - . 2. Femoral Vein: 2.1. Compressibility - Fully compressible: Thrombus - None: Flow - Phasic: Augmentation -Normal: Reflux - . 3. Popliteal Vein: 3.1. Compressibility - Fully compressible: Thrombus - None : Flow - Phasic: Augmentation -Normal: Reflux - . 4. Posterior Tibial Vein: 4.1. Compressibility - Fully compressible: Thrombus - None: Flow - : Augmentation -: Reflux - . 5. Peroneal Vein: 5.1. Compressibility - Fully compressible: Thrombus - None: Flow - : Augmentation -: Reflux - . 6. Great Saphenous Vein: 6.1. Compressibility - Fully compressible: Thrombus - None: Flow - Phasic: Augmentation - : Reflux - . OTHER FINDINGS: Right: None significant. Left: None significant. IMPRESSION: Right: No evidence of deep or superficial vein thrombosis of the right lower extremity. Left: No evidence of deep or superficial vein thrombosis of the left lower extremity.
== END 2018-02-22 14:30 | disposition home or self-care (01) | DRG 340 ==
LOC: C.ER 12:17 → C.9E 17:34 → C.3T 19:06
PROVIDERS: ADMIT Surgery Vascular Surgery; ATTEND Surgery Vascular Surgery
PROC: 0DTJ0ZZ Resection of Appendix, Open Approach (ICD-10-PCS; principal; 2018-02-18 10:00)
DX: K35.3 Acute appendicitis with localized peritonitis (principal); Z53.31 Laparoscopic surgical procedure converted to open procedure; Z87.891 Personal history of nicotine dependence; I10 Essential (primary) hypertension; E86.0 Dehydration; K21.9 Gastro-esophageal reflux disease without esophagitis; B96.20 Unspecified Escherichia coli [E. coli] as the cause of diseases classified elsewhere; B95.5 Unspecified streptococcus as the cause of diseases classified elsewhere

== ENCOUNTER 2018-07-01 09:38 | Inpatient (IN) | payer MEDICARE ==
[2018-06-20 11:26] VITALS: BMI 29.7
[2018-07-01] MEDS ORDERED: Bupivacaine 0.25% 20 ML INJ IJ ONE (10:50)
[2018-07-01] MEDS ORDERED: Clindamycin 600mg/50ml NS 600 MG/50 ML BAG IVPB ONE (10:50)
[2018-07-01] MEDS ORDERED: Propofol 10 mg/ml Inj (20 ML) ONE (11:24)
[2018-07-01] MEDS ORDERED: Midazolam 2 MG/2 ML VIAL ONE (11:24)
[2018-07-01] MEDS ORDERED: Bupivacaine-Epi 0.5%-1:200,000 PF Inj IJ ONE (12:01)
[2018-07-01] MEDS ORDERED: Rocuronium 10 mg/ml (5 ml) ONE (12:37)
--- NOTE | 2018-07-01 13:42 | PCM.SURG1 ---
Surgeon's Initial Post Op Note - Surgeon's Notes Surgeon: Dr. MELISSA Han Lead Software Development Engineer: Dr. Katia Johnston PGY-2; Lynnette Fajardo OMS-3 Pre-Operative Diagnosis: ventral hernia Operative Findings: A ventral hernia approximately 4cm in diameter with small bowel adhered to the pre-peritoneal fascia. Post-Operative Diagnosis: ventral hernia Operation Performed: open ventral hernia repair with mesh Specimen/Specimens Removed: hernia sac Estimated Blood Loss: EBL {In ML}: 50 Date of Surgery/Procedure: 07/01/18 Time of Surgery/Procedure: 11:30
[2018-07-01] MEDS ORDERED: Lactated Ringer's 1,000 ML IV SCH (14:00)
[2018-07-01] MEDS: HYDROmorphone 0.5 mg/0.5 ml ISec IVP PRN ×4 (14:14→20:18)
[2018-07-01] MEDS ORDERED: Lactated Ringer's 500 ML IV ONE ×2 (14:42)
[2018-07-01 20:06] VITALS: RESP 20
--- NOTE | 2018-07-01 22:09 | OP ---
PROCEDURE DATE: 07/01/2018 PREOPERATIVE DIAGNOSIS: Ventral hernia. POSTOPERATIVE DIAGNOSIS: Chronically incarcerated ventral hernia. SURGEON: Manish Han Jr., MD DIRECTOR CONSUMER: Katia Johnston DO ANESTHESIOLOGIST: Mr. Michelle. INDICATION: The patient is a 73-year-old woman, recent history of appendectomy, presents with upper midline abdominal hernia. OPERATIVE FINDINGS: This was a chronically incarcerated hernia with loop of bowel stuck to the right side of it. There were serosal tears in the bowel there was no [id number] injury to the bowel nor were there any enterotomies, simply serosal tears. This was checked twice and again, once more prior to closure to make sure that there was no evidence. We did place some silk sutures to approximate the serosal tears. The rest of the intraoperative findings was unremarkable. Complete abdominal exploration was not carried out. The defect itself was approximately 4 cm. DESCRIPTION OF PROCEDURE: The patient was given general anesthesia and intravenous antibiotics. Venodyne boots were applied. A transverse incision was made over the marked hernia. After this had been identified, we then dissected down. Initially, we tried to do this in a preperitoneal fashion which was impossible. We then carried this out by placing the mesh. It was an 11 cm x 14 cm Ventrio mesh which was placed into the peritoneal cavity with omentum being . In addition, after this had been secured into position, we used multiple tags to secure against the abdominal wall in the cuffed part of the Ventrio mesh and then we sutured the fascia to the mesh. This went quite well. The mesh was well apposed and completely fine. Skin was then closed with subcuticular closure. Blood loss for the procedure was less than 25 mL. OPERATION CARRIED OUT: Repair of chronically incarcerated ventral hernia with Ventrio mesh. Manish Han Jr., MD cc: Michi Tinajero MD
[2018-07-01] MEDS: Sodium Chloride 0.9% 1,000 ML IV SCH (22:50)
[2018-07-02] MEDS: HYDROmorphone 0.5 mg/0.5 ml ISec IVP PRN ×2 (03:20→11:21)
[2018-07-02] MEDS: Sodium Chloride 0.9% 1,000 ML IV SCH ×4 (03:27→17:36)
[2018-07-02 06:46] LABS: BASO % 0.2 % (0.0-2.0); HEMOGLOBIN 14.4 g/dL (11.0-16.0); LYMPH # 1.2 K/uL (1.0-4.3); LYMPH % 6.4 % (20.0-40.0); MEAN CELL VOLUME 90.1 fL (81.0-99.0); MEAN CORPUSCULAR HEMOGLOBIN 30.9 pg (27.0-31.0); MEAN CORPUSCULAR HGB CONC 34.3 g/dL (33.0-37.0); MEAN PLATELET VOLUME 9.5 fL (7.2-11.7); MONO # 1.2 K/uL (0.0-0.8); MONO % 6.7 % (0.0-10.0); NEUT # 15.6 K/uL (1.8-7.0); NEUT % 86.7 % (50.0-75.0); NRBC % 0.1 % (0.0-2.0); PLATELET COUNT 263 K/uL (130-400); RBC 4.65 Mil/uL (3.80-5.20); RED CELL DISTRIBUTION WIDTH 12.9 % (11.5-14.5)
[2018-07-02 07:01] LABS: BLOOD UREA NITROGEN 13 mg/dL (7-17); GFR NON-AFRICAN AMERICAN > 60
[2018-07-02 08:43] LABS: LYMPHOCYTE 7 % (20-40); MONOCYTE 5 % (0-10); NEUTROPHIL 88 % (50-75); PLATELET ESTIMATE NORMAL (NORMAL); TOTAL CELLS COUNTED 100
[2018-07-02] MEDS: Pantoprazole 40 mg EC Tab PO SCH (12:21)
--- NOTE | 2018-07-02 16:43 | CP.PCM.PN ---
Subjective - Date & Time of Evaluation Date of Evaluation: 07/02/18 Time of Evaluation: 07:45 - Subjective Subjective: Pt S&E. NAEO. Tolerating diet. Has pain, only moderately controlled. OOB and ambulating. Objective - Vital Signs/Intake and Output Vital Signs (last 24 hours): Temp Pulse Resp BP Pulse Ox 99.0 F 76 20 125/76 95 07/02/18 15:00 07/02/18 15:00 07/02/18 15:00 07/02/18 15:00 07/02/18 15:00 Intake and Output: 07/02/18 07/02/18 06:59 18:59 Intake Total 500 Balance 500 - Medications Medications: Current Medications Amlodipine Besylate (Norvasc) 5 mg PO DAILY [facility] Last Admin: 07/02/18 09:34 Dose: 5 mg Hydromorphone HCl (Dilaudid) 0.5 mg IVP Q6H PRN PRN Reason: Pain, severe (8-10) Last Admin: 07/02/18 11:21 Dose: 0.5 mg Sodium Chloride (Sodium Chloride 0.9%) 1,000 mls @ 125 mls/hr IV .Q8H [facility] Last Admin: 07/02/18 10:15 Dose: Not Given Loratadine (Claritin) 10 mg PO DAILY PRN PRN Reason: Allergy symptoms Last Admin: 07/02/18 09:44 Dose: 10 mg Metoprolol Tartrate (Lopressor) 25 mg PO DAILY [facility] Last Admin: 07/02/18 09:34 Dose: 25 mg Ondansetron HCl (Zofran Inj) 4 mg IVP Q6H PRN PRN Reason: Nausea/Vomiting Last Admin: 07/02/18 00:54 Dose: 4 mg Oxycodone/Acetaminophen (Percocet 5/325 Mg Tab) 1 tab PO Q4H PRN PRN Reason: Pain, moderate (4-7) Stop: 07/04/18 13:38 Pantoprazole Sodium (Protonix Ec Tab) 40 mg PO DAILY [facility] Last Admin: 07/02/18 12:21 Dose: 40 mg - Labs Labs: 07/02/18 06:41 07/02/18 06:41 - Constitutional Appears: Non-toxic, No Acute Distress - Respiratory Exam Respiratory Exam: absent: Accessory Muscle Use, Respiratory Distress - Cardiovascular Exam Cardiovascular Exam: REGULAR RHYTHM - GI/Abdominal Exam GI & Abdominal Exam: Soft, Tenderness (post-op). absent: Distended - Neurological Exam Neurological Exam: Alert, Awake, Oriented x3 Assessment and Plan - Assessment and Plan (Free Text) Assessment: cont pain meds prn oob and ambulate ok for regular diet d/w Dr Emely Red, PGY4
[2018-07-02] MEDS: Oxycodone/Acetaminophen 5/325 mg Tab PO PRN (17:40)
[2018-07-03] MEDS: Sodium Chloride 0.9% 1,000 ML IV SCH ×2 (01:45→10:15)
[2018-07-03] MEDS: Oxycodone/Acetaminophen 5/325 mg Tab PO PRN (03:14)
[2018-07-03 07:57] VITALS: PULSE 77; TEMP 98.3; O2SAT 96
[2018-07-03] MEDS: Pantoprazole 40 mg EC Tab PO SCH (10:14)
[2018-07-03 10:15] VITALS: BP 153/86
--- NOTE | 2018-07-03 11:00 | CP.PCM.DIS ---
Provider - Provider Date of Admission: 07/01/18 17:54 Attending physician: Manish Han Jr, MD Time Spent in preparation of Discharge (in minutes): 29 Diagnosis - Discharge Diagnosis (1) S/P ventral herniorrhaphy Status: Acute Comment: POD #2 Hospital Course - Lab Results Lab Results: Most Recent Lab Values WBC 18.0 K/uL (4.8-10.8) H D 07/02/18 06:41 RBC 4.65 Mil/uL (3.80-5.20) 07/02/18 06:41 Hgb 14.4 g/dL (11.0-16.0) 07/02/18 06:41 Hct 41.9 % (34.0-47.0) 07/02/18 06:41 MCV 90.1 fL (81.0-99.0) 07/02/18 06:41 MCH 30.9 pg (27.0-31.0) 07/02/18 06:41 MCHC 34.3 g/dL (33.0-37.0) 07/02/18 06:41 RDW 12.9 % (11.5-14.5) 07/02/18 06:41 Plt Count 263 K/uL (130-400) 07/02/18 06:41 MPV 9.5 fL (7.2-11.7) 07/02/18 06:41 Neut % (Auto) 86.7 % (50.0-75.0) H 07/02/18 06:41 Lymph % (Auto) 6.4 % (20.0-40.0) L 07/02/18 06:41 [place] % (Auto) 6.7 % (0.0-10.0) 07/02/18 06:41 Eos % (Auto) 0.0 % (0.0-4.0) 07/02/18 06:41 Baso % (Auto) 0.2 % (0.0-2.0) 07/02/18 06:41 Neut # (Auto) 15.6 K/uL (1.8-7.0) H 07/02/18 06:41 Lymph # (Auto) 1.2 K/uL (1.0-4.3) 07/02/18 06:41 [place] # (Auto) 1.2 K/uL (0.0-0.8) H 07/02/18 06:41 Eos # (Auto) 0.0 K/uL (0.0-0.7) 07/02/18 06:41 Baso # (Auto) 0.0 K/uL (0.0-0.2) 07/02/18 06:41 Neutrophils % (Manual) 88 % (50-75) H 07/02/18 06:41 Lymphocytes % (Manual) 7 % (20-40) L 07/02/18 06:41 Monocytes % (Manual) 5 % (0-10) 07/02/18 06:41 Platelet Estimate Normal (NORMAL) 07/02/18 06:41 Sodium 141 mmol/L (132-148) 07/02/18 06:41 Potassium 4.7 mmol/L (3.6-5.2) 07/02/18 06:41 Chloride 103 mmol/L (98-107) 07/02/18 06:41 Carbon Dioxide 31 mmol/L (22-30) H 07/02/18 06:41 Anion Gap 12 (10-20) 07/02/18 06:41 BUN 13 mg/dL (7-17) 07/02/18 06:41 Creatinine 0.8 mg/dL (0.7-1.2) 07/02/18 06:41 Est GFR ( Amer) > 60 07/02/18 06:41 Est GFR (Non-Af Amer) > 60 07/02/18 06:41 Random Glucose 110 mg/dL (65-105) H 07/02/18 06:41 Calcium 9.0 mg/dl (8.6-10.4) 07/02/18 06:41 - Hospital Course Hospital Course: 73 year old female admitted for excessive pain s/p ventral herniorrhaphy. Patient reported she was in too much pain and didn't feel she could manage it outpatient. Vitals stable and within normal limits throughout admission. Patient's pain was controlled with medications as needed. Patient passing flatus, voiding and ambulating well. Patient's PMD Dr. Michi Tinajero was co nsulted. Patient stable for discharge home, to follow up with Dr. Han in clinic in 1 week. Discharge Exam - Head Exam Head Exam: ATRAUMATIC, NORMAL INSPECTION, NORMOCEPHALIC - Eye Exam Eye Exam: EOMI - ENT Exam ENT Exam: Mucous Membranes Moist - Respiratory Exam Respiratory Exam: NORMAL BREATHING PATTERN, UNREMARKABLE - Cardiovascular Exam Cardiovascular Exam: RRR - GI/Abdominal Exam GI & Abdominal Exam: Normal Bowel Sounds, Soft, Tenderness (minimally tender to palpation). absent: Distended - Neurological Exam Neurological exam: Alert - Psychiatric Exam Psychiatric exam: Normal Affect, Normal Mood - Skin Skin Exam: Dry, Normal Color, Warm Discharge Plan - Follow Up Plan Condition: GOOD Disposition: HOME/ ROUTINE Additional Instructions: Patient is stable for discharge home. Patient should resume home medications as prescribed. Patient has a prescription for pain medication to be taken as instructed. Patient should take stool softeners to aid with bowel movements. Patient is advised not to engage in strenuous physical activity, such as lifting heavy objects(greater than 15 pounds) and forcefully straining. Patient may shower, but do not submerge incision in water. Patient should return to clinic in 1 week for follow up. Patient is advised to return to ED should there be fevers, excessive pain or bleeding.
== END 2018-07-03 13:13 | disposition home or self-care (01) | DRG 355 ==
LOC: C.SDS 09:38 → C.9S 17:54 → C.6T 20:05 → OBSVTOIN 07-03 11:05
PROVIDERS: ADMIT Surgery Vascular Surgery; ATTEND Surgery Vascular Surgery
PROC: 0WUF0JZ Supplement Abdominal Wall with Synthetic Substitute, Open Approach (ICD-10-PCS; principal; 2018-07-01 11:00)
DX: K43.6 Other and unspecified ventral hernia with obstruction, without gangrene (principal)